=== PATIENT | female | born 1945 | race Caucasian/White ===

== ENCOUNTER 2017-11-09 14:46 | Outpatient (CLI) | payer MEDICARE ==
--- NOTE | 2017-11-09 15:19 | RAD ---
CHEST 2 VIEWS: Date: 11/09/17 HISTORY: Asthma, acute bronchitis. COMPARISON: None. FINDINGS: Heart size upper limits of normal. No focal air space consolidation, pneumothorax, or effusion. No ac melvin osseous abnormality. Mild spondylosis mid thoracic spine. IMPRESSION: No acute intrathoracic abnormality. POS: [facility]
== END 2017-11-09 14:47 | disposition home or self-care (01) ==
LOC: BURRAD 14:46
PROVIDERS: ATTEND Internal Medicine
DX: J45.909 Unspecified asthma, uncomplicated (principal); J20.9 Acute bronchitis, unspecified
CPT/HCPCS: 71020

== ENCOUNTER 2018-03-06 14:37 | Outpatient (CLI) | payer MEDICARE ==
--- NOTE | 2018-03-07 07:28 | ULT ---
BILATERAL RENAL ULTRASOUND: Date: 03-06-18 Ultrasonography of the urinary tract was performed. FINDINGS: The right kidney measures 9.2 x 4.0 x 3.8 cm and the left measures 10.2 x 5.7 x 4.9 cm. No mass or hy dronephrosis was seen in either. Cortex was normal in thickness and echogenicity bilaterally. No defects of concern were seen within the urinary bladder. Bilateral ureteral jets were noted. IMPRESSION: No significant finding. POS: HOME
== END 2018-03-06 14:38 | disposition home or self-care (01) ==
LOC: BURULT 14:37
PROVIDERS: ATTEND Internal Medicine Nephrology
DX: I12.9 Hypertensive chronic kidney disease with stage 1 through stage 4 chronic kidney disease, or unspecified chronic kidney disease (principal); N18.9 Chronic kidney disease, unspecified
CPT/HCPCS: 76770

== ENCOUNTER 2018-06-08 16:54 | Inpatient (IN) | payer MEDICARE ==
[2018-06-08] MEDS ORDERED: VANCOMYCIN IVPB PRN (18:33)
[2018-06-08] MEDS ORDERED: Dextrose 5% in Water 1,000 ML IV PRN (18:47)
[2018-06-08] MEDS ORDERED: Dextrose 50% Abboject 50 ML SYRINGE SLOW IVP PRN (18:47)
[2018-06-08] MEDS ORDERED: Milk Of Magnesia 30 ML UDCUP PO PRN (18:48)
[2018-06-08] MEDS ORDERED: Loperamide HCl 2 MG CAP PO PRN (18:48)
[2018-06-08] MEDS ORDERED: cloNIDine 0.1 MG TAB PO PRN (18:48)
[2018-06-08] MEDS ORDERED: Bisacodyl 10 MG SUPP PR PRN (18:48)
[2018-06-08] MEDS ORDERED: Ondansetron ODT 4 MG TAB PO PRN (18:48)
[2018-06-08] MEDS: hydrALAZINE 25 MG TAB PO SCH (21:35)
[2018-06-08] MEDS: Venlafaxine XR 37.5 MG CAP PO SCH (21:35)
[2018-06-08] MEDS: Atorvastatin Calcium 40 MG TAB PO SCH (21:38)
[2018-06-08] MEDS: ALPRAZolam 0.5 MG TAB PO PRN (21:38)
[2018-06-08] MEDS: Levemir Flexpen 100 UNITS/ML PEN SC SCH (21:39)
[2018-06-08] MEDS: HumaLOG 300 UNITS/3 ML VIAL SC PRN (21:40)
[2018-06-08 23:29] LABS: Vancomycin, Trough 20.3 ug/mL
[2018-06-08] MEDS: Vancomycin HCl 750 MG in Sodium Chloride 0.9% 250 ML 250 ML IVPB SCH (23:54)
[2018-06-09] MEDS: Vancomycin HCl 500 MG in Sodium Chloride 0.9% 100 ML IVPB SCH (01:43)
[2018-06-09] MEDS: Acetaminophen 325 MG TAB PO PRN ×2 (02:50→08:14)
[2018-06-09] MEDS: Carvedilol 25 MG TAB PO SCH ×2 (07:46→17:25)
[2018-06-09] MEDS: predniSONE 10 MG TAB PO SCH (07:46)
[2018-06-09] MEDS: Furosemide 40 MG TAB PO SCH (07:46)
[2018-06-09] MEDS: HumaLOG 300 UNITS/3 ML VIAL SC PRN ×4 (07:48→20:11)
[2018-06-09] MEDS: Aspirin 325 MG TAB PO SCH (08:15)
[2018-06-09] MEDS: hydrALAZINE 25 MG TAB PO SCH ×2 (08:16→20:14)
[2018-06-09] MEDS: Venlafaxine XR 37.5 MG CAP PO SCH ×2 (08:17→20:13)
[2018-06-09] MEDS: Saccharomyces boulardii 250 MG CAP PO SCH (08:19)
[2018-06-09] MEDS: Levemir Flexpen 100 UNITS/ML PEN SC SCH ×2 (08:23→20:28)
[2018-06-09] MEDS: cefTRIAXone\\ROCEPHIN 2 GM in Sodium Chloride 0.9% 100 ML IVPB SCH (08:28)
[2018-06-09] MEDS ORDERED: CEFTRIAXONE SODIUM 2 GM IV SCH (09:00)
[2018-06-09] MEDS ORDERED: Prevnar 13-Val Conj/PF 0.5 ML SYRINGE IM ONE (09:00)
[2018-06-09] MEDS: ALPRAZolam 0.5 MG TAB PO PRN (12:21)
[2018-06-09] MEDS: NIFEdipine XL 30 MG TAB PO SCH (13:43)
[2018-06-09] MEDS: Loratadine 10 MG TAB PO PRN (13:43)
[2018-06-09] MEDS: Atorvastatin Calcium 40 MG TAB PO SCH (20:15)
[2018-06-09] MEDS: Vancomycin HCl 750 MG in Sodium Chloride 0.9% 250 ML 250 ML IVPB SCH (23:12)
[2018-06-10] MEDS: Vancomycin HCl 500 MG in Sodium Chloride 0.9% 100 ML IVPB SCH (00:53)
[2018-06-10] MEDS: Loratadine 10 MG TAB PO PRN (01:34)
[2018-06-10] MEDS: ALPRAZolam 0.5 MG TAB PO PRN ×3 (01:34→22:20)
[2018-06-10 06:20] LABS: ALT (SGPT) 25 U/L (8-55); AST (SGOT) 16 U/L (5-34); Albumin 2.5 g/dL (3.4-4.8); Alkaline Phosphatase 146 U/L (40-150); Anion Gap 14 mmol/L (10-20); BUN (Urea Nitrogen) 28 mg/dL (9.8-20.1); Bilirubin, Total 0.5 mg/dL (0.2-1.2); Calc. Creatinine Clearance 82 mL/min (70-130); Carbon Dioxide 23 mmol/L (23-31); Chloride 107 mmol/L (98-107); Estimated GFR-MDRD 63; Globulin 2.7 g/dL (2.4-3.5); Glucose 105 mg/dL (83-110); Potassium 3.6 mmol/L (3.5-5.1); Protein, Total 5.2 g/dL (6.0-8.3); Sodium 140 mmol/L (136-145)
[2018-06-10 06:37] LABS: Hemoglobin 7.7 g/dL (12.0-16.0); Mean Corpuscular HGB CONC 35.3 g/dL (32.0-36.0); Mean Corpuscular Volume 73.9 fL (78.0-98.0); Mean Platelet Volume 5.8 fL (7.4-10.4); Platelet Count 120 thou/uL (130-400); RBC Distribution Width 13.4 % (11.5-14.5); Red Blood Cell (RBC) Count 2.96 mill/uL (4.20-5.40); White Blood Cell (WBC) Count 1.2 thou/uL (4.8-10.8)
[2018-06-10 09:00] LABS: Lymphocytes 28 % (21-51); MDiff Complete? YES; Monocytes 22 % (0-10); Neutrophil 23 % (42-75); Reactive Lymphocytes 23 % (0-10)
[2018-06-10 09:01] LABS: Eosinophils 2 % (0-10)
[2018-06-10] MEDS: Venlafaxine XR 37.5 MG CAP PO SCH ×2 (09:11→21:12)
[2018-06-10] MEDS: Carvedilol 25 MG TAB PO SCH ×2 (09:11→17:41)
[2018-06-10] MEDS: Saccharomyces boulardii 250 MG CAP PO SCH (09:11)
[2018-06-10] MEDS: hydrALAZINE 25 MG TAB PO SCH ×2 (09:12→21:12)
[2018-06-10] MEDS: predniSONE 10 MG TAB PO SCH (09:15)
[2018-06-10] MEDS: Furosemide 40 MG TAB PO SCH (09:15)
[2018-06-10] MEDS: cefTRIAXone\\ROCEPHIN 2 GM in Sodium Chloride 0.9% 100 ML IVPB SCH (09:16)
[2018-06-10 09:45] LABS: Anisocytosis SLIGHT = 6-15 cells (100X) (0-5/hpf); Microcytosis SLIGHT = 6-15 cells (100X) (0-5/hpf); PLT Morphology Comment Appears Increased
[2018-06-10] MEDS: Levemir Flexpen 100 UNITS/ML PEN SC SCH ×2 (10:02→21:12)
[2018-06-10] MEDS: Aspirin 325 MG TAB PO SCH (10:03)
[2018-06-10] MEDS ORDERED: Furosemide 20 MG/2 ML VIAL SLOW IVP SCH ×2 (10:30→14:00)
[2018-06-10] MEDS: HumaLOG 300 UNITS/3 ML VIAL SC PRN ×3 (13:02→21:11)
[2018-06-10] MEDS: NIFEdipine XL 30 MG TAB PO SCH (14:14)
--- NOTE | 2018-06-10 18:23 | RAD ---
PORTABLE CHEST: Date: 06/10/18 An AP portable film at 1305 hours is compared with a 06/05/18 study done at [facility] [place]. FINDINGS: There is still a small amount of vascular congestion, but this has improved over the interval. A smal l amount of pleural fluid is probably present on the left. A tiny amount is seen in the minor fissure on the right. No lobar consolidations seen, but it is difficult to see well behind the heart on the left. A left subclavian line remains in place and unchanged in position. IMPRESSION: Some improvement in congestion since 06/05/18. POS: HOME
[2018-06-10] MEDS: Atorvastatin Calcium 40 MG TAB PO SCH (21:13)
[2018-06-11] MEDS: Vancomycin HCl 750 MG in Sodium Chloride 0.9% 250 ML 250 ML IVPB SCH (00:02)
[2018-06-11] MEDS: Vancomycin HCl 500 MG in Sodium Chloride 0.9% 100 ML IVPB SCH (00:54)
[2018-06-11] MEDS: Acetaminophen 325 MG TAB PO PRN (05:22)
[2018-06-11 05:31] LABS: Hemoglobin 7.7 g/dL (12.0-16.0); Mean Corpuscular HGB CONC 35.1 g/dL (32.0-36.0); Mean Corpuscular Hemoglobin 25.8 pg (27.0-31.0); Mean Corpuscular Volume 73.5 fL (78.0-98.0); Mean Platelet Volume 6.2 fL (7.4-10.4); Platelet Count 164 thou/uL (130-400); RBC Distribution Width 14.2 % (11.5-14.5); Red Blood Cell (RBC) Count 2.98 mill/uL (4.20-5.40); White Blood Cell (WBC) Count 1.1 thou/uL (4.8-10.8)
[2018-06-11 05:38] LABS: ALT (SGPT) 27 U/L (8-55); AST (SGOT) 17 U/L (5-34); Albumin 2.6 g/dL (3.4-4.8); Alkaline Phosphatase 170 U/L (40-150); Anion Gap 14 mmol/L (10-20); BUN (Urea Nitrogen) 24 mg/dL (9.8-20.1); Bilirubin, Total 0.5 mg/dL (0.2-1.2); Calc. Creatinine Clearance 75 mL/min (70-130); Calcium 8.2 mg/dL (7.8-10.44); Carbon Dioxide 25 mmol/L (23-31); Chloride 108 mmol/L (98-107); Estimated GFR-MDRD 58; Globulin 2.8 g/dL (2.4-3.5); Glucose 112 mg/dL (83-110); Potassium 3.6 mmol/L (3.5-5.1); Protein, Total 5.4 g/dL (6.0-8.3); Sodium 143 mmol/L (136-145)
[2018-06-11 05:51] LABS: Eosinophils 2 % (0-10); Lymphocytes 71 % (21-51); MDiff Complete? YES; Microcytosis SLIGHT = 6-15 cells (100X) (0-5/hpf); Monocytes 22 % (0-10); Neutrophil 2 % (42-75); Nucleated RBC 1 % (0); PLT Morphology Comment Appears Adequate; Reactive Lymphocytes 3 % (0-10)
[2018-06-11] MEDS: Saccharomyces boulardii 250 MG CAP PO SCH (08:06)
[2018-06-11] MEDS: hydrALAZINE 25 MG TAB PO SCH (08:06)
[2018-06-11] MEDS: predniSONE 10 MG TAB PO SCH (08:06)
[2018-06-11] MEDS: Venlafaxine XR 37.5 MG CAP PO SCH ×2 (08:06→20:37)
[2018-06-11] MEDS: Aspirin 325 MG TAB PO SCH (08:06)
[2018-06-11] MEDS: Carvedilol 25 MG TAB PO SCH ×2 (08:06→17:30)
[2018-06-11] MEDS: Furosemide 40 MG TAB PO SCH (08:06)
[2018-06-11] MEDS: cefTRIAXone\\ROCEPHIN 2 GM in Sodium Chloride 0.9% 100 ML IVPB SCH (08:07)
[2018-06-11] MEDS: Levemir Flexpen 100 UNITS/ML PEN SC SCH ×2 (08:37→20:36)
[2018-06-11] MEDS ORDERED: Lisinopril 20 MG TAB PO SCH (09:00)
[2018-06-11 12:14] LABS: Iron 32 ug/dL (50-170); Iron Binding Capacity, Total 198 mcg/dL (265-497)
[2018-06-11] MEDS: HumaLOG 300 UNITS/3 ML VIAL SC PRN ×3 (12:48→20:36)
[2018-06-11] MEDS: NIFEdipine XL 30 MG TAB PO SCH (15:19)
[2018-06-11] MEDS: Lisinopril 20 MG TAB PO SCH (20:37)
[2018-06-11] MEDS: Atorvastatin Calcium 40 MG TAB PO SCH (20:37)
[2018-06-11 23:32] LABS: Vancomycin, Trough 15.1 ug/mL
[2018-06-12] MEDS: Vancomycin HCl 750 MG in Sodium Chloride 0.9% 250 ML 250 ML IVPB SCH (00:01)
[2018-06-12] MEDS: Vancomycin HCl 500 MG in Sodium Chloride 0.9% 100 ML IVPB SCH (01:28)
[2018-06-12] MEDS: Acetaminophen 325 MG TAB PO PRN (02:26)
[2018-06-12] MEDS: ALPRAZolam 0.5 MG TAB PO PRN (02:26)
[2018-06-12] MEDS ORDERED: Furosemide 20 MG/2 ML VIAL SLOW IVP SCH ×3 (03:30→18:45)
[2018-06-12 05:28] LABS: Hemoglobin 7.1 g/dL (12.0-16.0); Mean Corpuscular HGB CONC 35.1 g/dL (32.0-36.0); Mean Corpuscular Hemoglobin 25.8 pg (27.0-31.0); Mean Corpuscular Volume 73.6 fL (78.0-98.0); Platelet Count 159 thou/uL (130-400); RBC Distribution Width 13.7 % (11.5-14.5); Red Blood Cell (RBC) Count 2.75 mill/uL (4.20-5.40); White Blood Cell (WBC) Count 1.2 thou/uL (4.8-10.8)
[2018-06-12 05:37] LABS: ALT (SGPT) 26 U/L (8-55); AST (SGOT) 13 U/L (5-34); Albumin 2.5 g/dL (3.4-4.8); Alkaline Phosphatase 164 U/L (40-150); Anion Gap 13 mmol/L (10-20); BUN (Urea Nitrogen) 27 mg/dL (9.8-20.1); Bilirubin, Total 0.4 mg/dL (0.2-1.2); Calc. Creatinine Clearance 72 mL/min (70-130); Calcium 8.2 mg/dL (7.8-10.44); Carbon Dioxide 25 mmol/L (23-31); Chloride 108 mmol/L (98-107); Estimated GFR-MDRD 55; Globulin 2.5 g/dL (2.4-3.5); Glucose 210 mg/dL (83-110); Potassium 3.7 mmol/L (3.5-5.1); Sodium 142 mmol/L (136-145)
[2018-06-12 05:53] LABS: Lymphocytes 71 % (21-51); MDiff Complete? YES; Microcytosis SLIGHT = 6-15 cells (100X) (0-5/hpf); Monocytes 20 % (0-10); Neutrophil 4 % (42-75); PLT Morphology Comment Appears Adequate; Reactive Lymphocytes 3 % (0-10)
[2018-06-12] MEDS ORDERED: Furosemide 40 MG/4 ML VIAL ONE (08:08)
[2018-06-12] MEDS: Aspirin 325 MG TAB PO SCH (08:22)
[2018-06-12] MEDS: Venlafaxine XR 37.5 MG CAP PO SCH ×2 (08:22→21:09)
[2018-06-12] MEDS: Carvedilol 25 MG TAB PO SCH ×2 (08:23→16:29)
[2018-06-12] MEDS: Saccharomyces boulardii 250 MG CAP PO SCH (08:23)
[2018-06-12] MEDS: predniSONE 10 MG TAB PO SCH (08:24)
[2018-06-12] MEDS: HumaLOG 300 UNITS/3 ML VIAL SC PRN ×5 (08:26→21:08)
[2018-06-12] MEDS ORDERED: Furosemide 40 MG/4 ML VIAL SLOW IVP SCH ×2 (08:30→12:15)
[2018-06-12] MEDS: Levemir Flexpen 100 UNITS/ML PEN SC SCH ×2 (08:30→21:08)
[2018-06-12] MEDS: Lisinopril 20 MG TAB PO SCH ×2 (08:40→21:09)
[2018-06-12] MEDS: Furosemide 40 MG TAB PO SCH (09:06)
[2018-06-12] MEDS: cefTRIAXone\\ROCEPHIN 2 GM in Sodium Chloride 0.9% 100 ML IVPB SCH (09:33)
[2018-06-12 09:54] LABS: Bilirubin Negative (Negative); Clarity Cloudy (Clear); Glucose, Urine (Dipstick) 100 mg/dL (Negative); Leukocyte Negative (Negative); Nitrite Negative (Negative); Protein, Urine (Dipstick) 100 mg/dL (Neg-Trace); Specific Gravity, Urine 1.015 (1.005-1.030); Urobilinogen 0.2 mg/dL (0.2-1.0); pH, Urine 5.5 (5.0-9.0)
[2018-06-12 09:55] LABS: Bacteria/HPF 1+ HPF (None Seen); Blood, Urine Trace (Negative); Crystals/HPF 3+ AMORPH URATES HPF (Negative); Squamous Epithelial 0-3 HPF (0-3); WBC/HPF 0-3 HPF (0-3)
[2018-06-12 09:56] LABS: RBC/HPF None Seen HPF (0-3); Yeast-All Forms Rare HPF (None Seen)
[2018-06-12 10:54] LABS: MONO NEGATIVE CONTROL ZONE White (Negative) (White); MONO POSITIVE CONTROL Pink Line (Positive) (PINK/RED); Mononucleosis NEGATIVE (NEGATIVE)
[2018-06-12] MEDS: NIFEdipine XL 30 MG TAB PO SCH (13:08)
[2018-06-12] MEDS ORDERED: Acetaminophen 325 MG TAB ONE (16:19)
[2018-06-12] MEDS ORDERED: diphenhydrAMINE 25 MG CAP ONE (16:24)
[2018-06-12] MEDS ORDERED: Acetaminophen 325 MG TAB PO PRN (16:43)
[2018-06-12] MEDS ORDERED: diphenhydrAMINE 25 MG CAP PO SCH (16:45)
[2018-06-12 18:18] LABS: HIV (1/2) Antibody/Antigen Non-Reactive (NonReactive); HIV 1/2 INDEX 0.12 S/CO (<1.00)
[2018-06-12] MEDS: Ciprofloxacin 500 MG TAB PO SCH (21:09)
[2018-06-12] MEDS: Furosemide 20 MG/2 ML VIAL SLOW IVP SCH (21:09)
[2018-06-12] MEDS: Atorvastatin Calcium 40 MG TAB PO SCH (21:09)
[2018-06-13] MEDS: Vancomycin HCl 750 MG in Sodium Chloride 0.9% 250 ML 250 ML IVPB SCH ×2 (01:07→23:59)
[2018-06-13] MEDS: Furosemide 20 MG/2 ML VIAL SLOW IVP SCH (01:07)
[2018-06-13] MEDS: Vancomycin HCl 500 MG in Sodium Chloride 0.9% 100 ML IVPB SCH (01:08)
[2018-06-13] MEDS: ALPRAZolam 0.5 MG TAB PO PRN (02:02)
[2018-06-13] MEDS ORDERED: Sodium Chloride 0.9% 10 ML ONE (04:09)
[2018-06-13] MEDS ORDERED: Nitroglycerin 2% Ointment 1 INCH/1 GM Packet ONE ×2 (04:18→04:42)
[2018-06-13] MEDS ORDERED: Furosemide 40 MG/4 ML VIAL ONE (04:20)
[2018-06-13 05:26] LABS: Anion Gap 15 mmol/L (10-20); BUN (Urea Nitrogen) 24 mg/dL (9.8-20.1); Calc. Creatinine Clearance 69 mL/min (70-130); Calcium 8.6 mg/dL (7.8-10.44); Carbon Dioxide 25 mmol/L (23-31); Chloride 104 mmol/L (98-107); Estimated GFR-MDRD 51; Glucose 214 mg/dL (83-110); Potassium 3.8 mmol/L (3.5-5.1); Sodium 140 mmol/L (136-145)
[2018-06-13 06:08] LABS: Anisocytosis SLIGHT = 6-15 cells (100X) (0-5/hpf); Eosinophils 2 % (0-10); Hemoglobin 11.2 g/dL (12.0-16.0); Lymphocytes 56 % (21-51); MDiff Complete? YES; Mean Corpuscular HGB CONC 36.7 g/dL (32.0-36.0); Mean Corpuscular Hemoglobin 27.6 pg (27.0-31.0); Mean Corpuscular Volume 75.2 fL (78.0-98.0); Mean Platelet Volume 6.1 fL (7.4-10.4); Microcytosis SLIGHT = 6-15 cells (100X) (0-5/hpf); Monocytes 38 % (0-10); Neutrophil 2 % (42-75); Ovalocytes SLIGHT = 2-5 cells (100X) (0-1/hpf); PLT Morphology Comment Appears Adequate; Platelet Count 190 thou/uL (130-400); RBC Distribution Width 14.7 % (11.5-14.5); Reactive Lymphocytes 2 % (0-10); Red Blood Cell (RBC) Count 4.06 mill/uL (4.20-5.40); White Blood Cell (WBC) Count 1.5 thou/uL (4.8-10.8)
[2018-06-13] MEDS: Ciprofloxacin 500 MG TAB PO SCH ×2 (06:10→20:58)
--- NOTE | 2018-06-13 07:13 | RAD ---
PORTABLE CHEST: Date 06/13/18 An AP portable film at 0412 hours is compared to the 06/10/18 study. FINDINGS: The heart remains enlarged. There is still congestion of vessels bilaterally, which is not really imp roved by much. There probably are some small effusions. There is increased haziness over the lung bas es, mostly due to overlying soft tissues. It would be difficult to exclude pneumonias in the lung bas es, however. Overall, the appearance of the chest is fairly similar to the 06/10/18 study. Left centr al line remains in place. IMPRESSION: Congestive changes as noted, somewhat similar to 06/10/18. See discussion above. CODE T. POS: HOME
[2018-06-13] MEDS ORDERED: Metolazone 5 MG TAB PO SCH (07:45)
[2018-06-13] MEDS ORDERED: cloNIDine 0.1 MG TAB PO PRN (07:48)
[2018-06-13] MEDS: Levemir Flexpen 100 UNITS/ML PEN SC SCH ×2 (08:25→20:54)
[2018-06-13] MEDS: predniSONE 10 MG TAB PO SCH (08:26)
[2018-06-13] MEDS: Venlafaxine XR 37.5 MG CAP PO SCH ×2 (08:27→20:57)
[2018-06-13] MEDS: Carvedilol 25 MG TAB PO SCH ×2 (08:27→16:58)
[2018-06-13] MEDS: Lisinopril 20 MG TAB PO SCH ×2 (08:28→20:58)
[2018-06-13] MEDS: Aspirin 325 MG TAB PO SCH (08:28)
[2018-06-13] MEDS: Saccharomyces boulardii 250 MG CAP PO SCH (08:28)
[2018-06-13] MEDS: Furosemide 40 MG TAB PO SCH (08:29)
[2018-06-13] MEDS: HumaLOG 300 UNITS/3 ML VIAL SC PRN ×4 (08:32→20:54)
[2018-06-13] MEDS: NIFEdipine XL 30 MG TAB PO SCH (14:15)
[2018-06-13] MEDS: Atorvastatin Calcium 40 MG TAB PO SCH (20:57)
[2018-06-14] MEDS: Vancomycin HCl 500 MG in Sodium Chloride 0.9% 100 ML IVPB SCH (02:07)
[2018-06-14] MEDS: Ciprofloxacin 500 MG TAB PO SCH ×2 (05:02→20:31)
[2018-06-14 05:30] LABS: ALT (SGPT) 29 U/L (8-55); AST (SGOT) 18 U/L (5-34); Albumin 2.7 g/dL (3.4-4.8); Alkaline Phosphatase 166 U/L (40-150); Anion Gap 15 mmol/L (10-20); BUN (Urea Nitrogen) 28 mg/dL (9.8-20.1); Bilirubin, Total 0.5 mg/dL (0.2-1.2); Calc. Creatinine Clearance 69 mL/min (70-130); Calcium 8.2 mg/dL (7.8-10.44); Carbon Dioxide 22 mmol/L (23-31); Chloride 107 mmol/L (98-107); Estimated GFR-MDRD 51; Globulin 2.9 g/dL (2.4-3.5); Glucose 133 mg/dL (83-110); Potassium 4.2 mmol/L (3.5-5.1); Protein, Total 5.6 g/dL (6.0-8.3); Sodium 140 mmol/L (136-145)
[2018-06-14] MEDS: Venlafaxine XR 37.5 MG CAP PO SCH ×2 (08:51→20:32)
[2018-06-14] MEDS: Aspirin 325 MG TAB PO SCH (08:51)
[2018-06-14] MEDS: Furosemide 40 MG TAB PO SCH ×3 (08:51→14:28)
[2018-06-14] MEDS: Saccharomyces boulardii 250 MG CAP PO SCH (08:52)
[2018-06-14] MEDS: Lisinopril 20 MG TAB PO SCH ×2 (08:52→20:32)
[2018-06-14] MEDS: Carvedilol 25 MG TAB PO SCH ×2 (08:52→17:03)
[2018-06-14] MEDS: Levemir Flexpen 100 UNITS/ML PEN SC SCH ×2 (08:53→20:39)
[2018-06-14] MEDS: predniSONE 10 MG TAB PO SCH (08:53)
[2018-06-14 10:01] LABS: Hemoglobin 9.8 g/dL (12.0-16.0); Mean Corpuscular HGB CONC 35.7 g/dL (32.0-36.0); Mean Corpuscular Hemoglobin 27.2 pg (27.0-31.0); Mean Corpuscular Volume 76.2 fL (78.0-98.0); Mean Platelet Volume 5.7 fL (7.4-10.4); Platelet Count 189 thou/uL (130-400); White Blood Cell (WBC) Count 1.9 thou/uL (4.8-10.8)
[2018-06-14 10:19] LABS: Band 3 % (5-11); Eosinophils 1 % (0-10); Giant Platelets SLIGHT; Large Platelets SLIGHT; Lymphocytes 8 % (21-51); MDiff Complete? YES; Monocytes 16 % (0-10); Neutrophil 69 % (42-75); PLT Morphology Comment Appears Adequate; RBC Morphology Normal; Reactive Lymphocytes 3 % (0-10)
[2018-06-14] MEDS: HumaLOG 300 UNITS/3 ML VIAL SC PRN (12:21)
[2018-06-14] MEDS: NIFEdipine XL 30 MG TAB PO SCH (14:26)
[2018-06-14] MEDS: Atorvastatin Calcium 40 MG TAB PO SCH (20:31)
[2018-06-14] MEDS ORDERED: Spironolactone 25 MG TAB PO SCH (21:00)
[2018-06-14 23:28] LABS: Vancomycin, Trough 17.6 ug/mL
[2018-06-14] MEDS: Vancomycin HCl 750 MG in Sodium Chloride 0.9% 250 ML 250 ML IVPB SCH (23:41)
[2018-06-15] MEDS: Vancomycin HCl 500 MG in Sodium Chloride 0.9% 100 ML IVPB SCH (01:01)
[2018-06-15] MEDS: ALPRAZolam 0.5 MG TAB PO PRN (04:25)
[2018-06-15 05:05] LABS: INR-International Normal Ratio 1.1; PTT 33.7 SEC (22.9-36.1); Prothrombin Time 13.9 SEC (12.0-14.7)
[2018-06-15] MEDS: Ciprofloxacin 500 MG TAB PO SCH ×2 (05:05→20:44)
[2018-06-15 05:09] LABS: Anion Gap 16 mmol/L (10-20); BUN (Urea Nitrogen) 35 mg/dL (9.8-20.1); Calc. Creatinine Clearance 55 mL/min (70-130); Calcium 8.1 mg/dL (7.8-10.44); Carbon Dioxide 22 mmol/L (23-31); Chloride 103 mmol/L (98-107); Estimated GFR-MDRD 41; Glucose 206 mg/dL (83-110); Potassium 3.7 mmol/L (3.5-5.1); Sodium 137 mmol/L (136-145)
[2018-06-15] MEDS ORDERED: Furosemide 40 MG/4 ML VIAL ONE (05:24)
[2018-06-15 05:28] LABS: Hemoglobin 9.2 g/dL (12.0-16.0); Mean Corpuscular HGB CONC 37.4 g/dL (32.0-36.0); Mean Corpuscular Hemoglobin 28.1 pg (27.0-31.0); Mean Corpuscular Volume 75.2 fL (78.0-98.0); Mean Platelet Volume 5.6 fL (7.4-10.4); Platelet Count 177 thou/uL (130-400); RBC Distribution Width 15.1 % (11.5-14.5); Red Blood Cell (RBC) Count 3.26 mill/uL (4.20-5.40); White Blood Cell (WBC) Count 2.4 thou/uL (4.8-10.8)
[2018-06-15 05:33] LABS: Band 1 % (5-11); Lymphocytes 54 % (21-51); Manual Diff?? YES; Monocytes 42 % (0-10); Neutrophil 2 % (42-75); Reactive Lymphocytes 1 % (0-10)
[2018-06-15 05:34] LABS: Anisocytosis SLIGHT = 6-15 cells (100X) (0-5/hpf); Microcytosis SLIGHT = 6-15 cells (100X) (0-5/hpf); Vacuoles SLIGHT
[2018-06-15 05:35] LABS: MDiff Complete? YES; PLT Morphology Comment Appears Adequate; Small Platelets SLIGHT
[2018-06-15] MEDS ORDERED: Furosemide 40 MG/4 ML VIAL SLOW IVP SCH (06:00)
[2018-06-15] MEDS: Aspirin 325 MG TAB PO SCH (09:22)
[2018-06-15] MEDS: Carvedilol 25 MG TAB PO SCH ×2 (09:23→17:57)
[2018-06-15] MEDS: Venlafaxine XR 37.5 MG CAP PO SCH ×2 (09:23→20:43)
[2018-06-15] MEDS: predniSONE 10 MG TAB PO SCH (09:23)
[2018-06-15] MEDS: Furosemide 40 MG TAB PO SCH ×2 (09:24→14:00)
[2018-06-15] MEDS: Lisinopril 20 MG TAB PO SCH ×2 (09:24→20:45)
[2018-06-15] MEDS: Saccharomyces boulardii 250 MG CAP PO SCH (09:29)
[2018-06-15] MEDS: Levemir Flexpen 100 UNITS/ML PEN SC SCH ×2 (09:29→20:51)
[2018-06-15] MEDS: HumaLOG 300 UNITS/3 ML VIAL SC PRN ×3 (12:51→20:52)
[2018-06-15] MEDS: NIFEdipine XL 30 MG TAB PO SCH (14:00)
[2018-06-15] MEDS: Loratadine 10 MG TAB PO PRN (17:57)
[2018-06-15] MEDS: Atorvastatin Calcium 40 MG TAB PO SCH (20:43)
[2018-06-15] MEDS: Spironolactone 25 MG TAB PO SCH (20:44)
[2018-06-15] MEDS: Vancomycin HCl 1.25 GM in Sodium Chloride 0.9% 250 ML 250 ML IVPB SCH (23:49)
[2018-06-16] MEDS: diphenhydrAMINE 25 MG CAP PO PRN (00:37)
[2018-06-16] MEDS: ALPRAZolam 0.5 MG TAB PO PRN ×2 (03:27→21:24)
[2018-06-16] MEDS: Ciprofloxacin 500 MG TAB PO SCH ×2 (05:36→21:31)
[2018-06-16 05:50] LABS: ALT (SGPT) 28 U/L (8-55); AST (SGOT) 15 U/L (5-34); Albumin 3.1 g/dL (3.4-4.8); Alkaline Phosphatase 182 U/L (40-150); Anion Gap 16 mmol/L (10-20); BUN (Urea Nitrogen) 34 mg/dL (9.8-20.1); Bilirubin, Total 0.6 mg/dL (0.2-1.2); Calc. Creatinine Clearance 45 mL/min (70-130); Calcium 8.7 mg/dL (7.8-10.44); Carbon Dioxide 25 mmol/L (23-31); Chloride 103 mmol/L (98-107); Estimated GFR-MDRD 32; Glucose 113 mg/dL (83-110); Potassium 3.7 mmol/L (3.5-5.1); Protein, Total 6.1 g/dL (6.0-8.3); Sodium 140 mmol/L (136-145)
[2018-06-16 06:05] LABS: Anisocytosis SLIGHT = 6-15 cells (100X) (0-5/hpf); Band 14 % (5-11); Hemoglobin 10.4 g/dL (12.0-16.0); Lymphocytes 35 % (21-51); MDiff Complete? YES; Mean Corpuscular HGB CONC 36.5 g/dL (32.0-36.0); Mean Corpuscular Hemoglobin 27.8 pg (27.0-31.0); Mean Corpuscular Volume 75.9 fL (78.0-98.0); Mean Platelet Volume 5.8 fL (7.4-10.4); Microcytosis SLIGHT = 6-15 cells (100X) (0-5/hpf); Monocytes 23 % (0-10); Neutrophil 27 % (42-75); PLT Morphology Comment Appears Adequate; Platelet Count 200 thou/uL (130-400); RBC Distribution Width 15.1 % (11.5-14.5); Reactive Lymphocytes 1 % (0-10); Red Blood Cell (RBC) Count 3.76 mill/uL (4.20-5.40); Toxic Granulation SLIGHT; White Blood Cell (WBC) Count 3.2 thou/uL (4.8-10.8)
[2018-06-16] MEDS: Carvedilol 25 MG TAB PO SCH ×2 (09:33→18:03)
[2018-06-16] MEDS: Lisinopril 20 MG TAB PO SCH ×2 (09:33→21:31)
[2018-06-16] MEDS: Saccharomyces boulardii 250 MG CAP PO SCH (09:33)
[2018-06-16] MEDS: Loratadine 10 MG TAB PO PRN (09:33)
[2018-06-16] MEDS: Aspirin 325 MG TAB PO SCH (09:33)
[2018-06-16] MEDS: Venlafaxine XR 37.5 MG CAP PO SCH ×2 (09:33→21:24)
[2018-06-16] MEDS: predniSONE 10 MG TAB PO SCH (09:34)
[2018-06-16] MEDS: Furosemide 40 MG TAB PO SCH ×2 (09:34→14:21)
[2018-06-16] MEDS: Levemir Flexpen 100 UNITS/ML PEN SC SCH ×2 (09:37→21:27)
[2018-06-16] MEDS: NIFEdipine XL 30 MG TAB PO SCH (14:14)
[2018-06-16] MEDS: HumaLOG 300 UNITS/3 ML VIAL SC PRN ×3 (14:21→21:27)
--- NOTE | 2018-06-16 20:53 | CT ---
CT ABDOMEN AND PELVIS WITHOUT CONTRAST: Date: 06-16-18 Comparison: 04-21-08 Technique: A noncontrast study was done. IV contrast was deferred due to poor renal function. Axial s lices were acquired and then coronal and sagittal reconstructions were done. FINDINGS: The lung bases show moderate pleural effusions bilaterally with compressive atelectasis of the lower lobes. This is presumably due to congestive change. There is asymmetry in the breast tissue in the le ft breast versus right, this is probably due to uneven scanning. Nevertheless, if there has not been a recent physical exam it would be prudent. The liver is mildly enlarged but comparable to the 2008 study. It is somewhat dense suggesting diffus e fatty infiltration. There were no dilated ducts of signs of hepatic mass. The spleen is normal in s ize. The pancreas, gallbladder, adrenal glands, kidneys, and abdominal aorta showed no acute findings within the limitations of a noncontrast study. The aorta is partially calcified, particularly distal ly. There are some small amounts of fluid in the pericolic gutters and a small to medium amount in the cu l-de-sac. Given some general reticulation of the patient's soft tissues, I presume that this is all d ue to congestive change and her fluid status. No free air was seen. The bowel is nondistended. There are no sign of bowel obstruction. No gross thickening of bowel wall was appreciated. CT of the pelvis shows a Beltran catheter in the bladder which partially decompresses it. Aside from th e fluid in the cul-de-sac, a few areas of generalized streaking in the pelvic fat were seen throughou t, a nonspecific finding, and possibly due to her fluid status. There is a prominent disc osteophyte complex at L5-S1. It was present before but seems a little more prominent now. Additionally at L2-3 t here seems to be some posterior bulging of the disc. IMPRESSION: 1. Moderate bilateral pleural effusions causing some compressive lower lobe atelectasis. This taken i n concert with some pockets of fluid in the abdomen and reticulation of the soft tissues suggests dinesh t this is all connected to the patient's fluid status. 2. Mild hepatomegaly but not substantially worse than 2008. Probable diffuse fatty infiltration. 3. Other findings as above. POS: HOME
[2018-06-16] MEDS: Spironolactone 25 MG TAB PO SCH (21:24)
[2018-06-16] MEDS: Atorvastatin Calcium 40 MG TAB PO SCH (21:24)
[2018-06-16 23:57] LABS: Vancomycin, Trough 22.8 ug/mL
[2018-06-17] MEDS: Vancomycin HCl 1.25 GM in Sodium Chloride 0.9% 250 ML 250 ML IVPB SCH (01:52)
[2018-06-17] MEDS: diphenhydrAMINE 25 MG CAP PO PRN ×3 (03:34→20:54)
[2018-06-17 05:06] LABS: ALT (SGPT) 24 U/L (8-55); AST (SGOT) 15 U/L (5-34); Albumin 2.5 g/dL (3.4-4.8); Alkaline Phosphatase 145 U/L (40-150); Anion Gap 16 mmol/L (10-20); BUN (Urea Nitrogen) 35 mg/dL (9.8-20.1); Bilirubin, Total 0.3 mg/dL (0.2-1.2); Calc. Creatinine Clearance 44 mL/min (70-130); Carbon Dioxide 24 mmol/L (23-31); Chloride 103 mmol/L (98-107); Estimated GFR-MDRD 31; Globulin 2.4 g/dL (2.4-3.5); Glucose 193 mg/dL (83-110); Potassium 3.8 mmol/L (3.5-5.1); Protein, Total 4.9 g/dL (6.0-8.3); Sodium 139 mmol/L (136-145)
[2018-06-17] MEDS: Ciprofloxacin 500 MG TAB PO SCH ×2 (05:38→23:09)
[2018-06-17 05:40] LABS: Anisocytosis SLIGHT = 6-15 cells (100X) (0-5/hpf); Band 22 % (5-11); Hemoglobin 8.5 g/dL (12.0-16.0); Lymphocytes 22 % (21-51); MDiff Complete? YES; Mean Corpuscular Hemoglobin 27.6 pg (27.0-31.0); Mean Corpuscular Volume 76.6 fL (78.0-98.0); Mean Platelet Volume 5.8 fL (7.4-10.4); Microcytosis SLIGHT = 6-15 cells (100X) (0-5/hpf); Monocytes 20 % (0-10); Neutrophil 36 % (42-75); Ovalocytes SLIGHT = 2-5 cells (100X) (0-1/hpf); PLT Morphology Comment Appears Adequate; Platelet Count 153 thou/uL (130-400); RBC Distribution Width 15.1 % (11.5-14.5); Red Blood Cell (RBC) Count 3.07 mill/uL (4.20-5.40); Toxic Granulation SLIGHT; White Blood Cell (WBC) Count 4.1 thou/uL (4.8-10.8)
[2018-06-17] MEDS: Levemir Flexpen 100 UNITS/ML PEN SC SCH ×2 (08:16→20:54)
[2018-06-17] MEDS: Venlafaxine XR 37.5 MG CAP PO SCH ×2 (08:21→20:54)
[2018-06-17] MEDS: Furosemide 40 MG TAB PO SCH ×3 (08:22→13:50)
[2018-06-17] MEDS: Carvedilol 25 MG TAB PO SCH ×2 (08:23→16:31)
[2018-06-17] MEDS: Lisinopril 20 MG TAB PO SCH ×2 (08:23→20:55)
[2018-06-17] MEDS: Aspirin 325 MG TAB PO SCH (08:23)
[2018-06-17] MEDS: Saccharomyces boulardii 250 MG CAP PO SCH (08:24)
[2018-06-17] MEDS: Vancomycin HCl 1 GM in Sodium Chloride 0.9% 250 ML 250 ML IVPB SCH (08:24)
[2018-06-17] MEDS: Loratadine 10 MG TAB PO PRN (08:48)
[2018-06-17] MEDS ORDERED: FLUID RESTRICTION IVPB PRN (10:24)
[2018-06-17] MEDS: HumaLOG 300 UNITS/3 ML VIAL SC PRN ×3 (12:22→20:52)
[2018-06-17] MEDS: NIFEdipine XL 30 MG TAB PO SCH (13:47)
[2018-06-17] MEDS: Acetaminophen 325 MG TAB PO PRN (13:58)
[2018-06-17] MEDS: Famotidine 20 MG TAB PO PRN (20:54)
[2018-06-17] MEDS: Atorvastatin Calcium 40 MG TAB PO SCH (20:54)
[2018-06-17] MEDS: Spironolactone 25 MG TAB PO SCH (20:55)
[2018-06-17] MEDS: ALPRAZolam 0.5 MG TAB PO PRN (20:55)
[2018-06-18 05:32] LABS: #Basophils 0.2 thou/uL (0.0-0.2); #Lymphocytes 1.2 thou/uL (1.20-3.40); #Monocytes 0.9 thou/uL (0.11-0.59); #Neutrophils 5.8 thou/uL (1.40-6.50); %Basophils 2.9 % (0.0-1.0); %Eosinophils 0.2 % (0.0-10.0); %Lymphocytes 14.8 % (21.0-51.0); %Monocytes 11.4 % (0.0-10.0); %Neutrophils 70.8 % (42.0-75.0); Hemoglobin 9.5 g/dL (12.0-16.0); Mean Corpuscular HGB CONC 36.7 g/dL (32.0-36.0); Mean Corpuscular Hemoglobin 27.8 pg (27.0-31.0); Mean Corpuscular Volume 75.7 fL (78.0-98.0); Mean Platelet Volume 5.5 fL (7.4-10.4); Platelet Count 179 thou/uL (130-400); RBC Distribution Width 14.9 % (11.5-14.5); Red Blood Cell (RBC) Count 3.43 mill/uL (4.20-5.40); White Blood Cell (WBC) Count 8.2 thou/uL (4.8-10.8)
[2018-06-18 05:40] LABS: ALT (SGPT) 25 U/L (8-55); AST (SGOT) 14 U/L (5-34); Albumin 2.9 g/dL (3.4-4.8); Alkaline Phosphatase 162 U/L (40-150); Anion Gap 16 mmol/L (10-20); BUN (Urea Nitrogen) 32 mg/dL (9.8-20.1); Bilirubin, Total 0.5 mg/dL (0.2-1.2); Calc. Creatinine Clearance 44 mL/min (70-130); Calcium 8.6 mg/dL (7.8-10.44); Carbon Dioxide 26 mmol/L (23-31); Chloride 104 mmol/L (98-107); Estimated GFR-MDRD 32; Globulin 2.8 g/dL (2.4-3.5); Glucose 119 mg/dL (83-110); Potassium 3.7 mmol/L (3.5-5.1); Protein, Total 5.7 g/dL (6.0-8.3); Sodium 142 mmol/L (136-145)
[2018-06-18] MEDS: Loratadine 10 MG TAB PO PRN (07:33)
[2018-06-18] MEDS: diphenhydrAMINE 25 MG CAP PO PRN (07:33)
[2018-06-18] MEDS: Furosemide 40 MG TAB PO SCH ×2 (07:33→13:41)
[2018-06-18] MEDS: Famotidine 20 MG TAB PO PRN ×2 (07:33→21:18)
[2018-06-18] MEDS: ALPRAZolam 0.5 MG TAB PO PRN (07:33)
[2018-06-18] MEDS: Aspirin 325 MG TAB PO SCH (08:10)
[2018-06-18] MEDS: Lisinopril 20 MG TAB PO SCH ×2 (08:11→21:18)
[2018-06-18] MEDS: Saccharomyces boulardii 250 MG CAP PO SCH (08:11)
[2018-06-18] MEDS: Carvedilol 25 MG TAB PO SCH ×2 (08:11→16:36)
[2018-06-18] MEDS: Vancomycin HCl 1 GM in Sodium Chloride 0.9% 250 ML 250 ML IVPB SCH (08:12)
[2018-06-18] MEDS: Venlafaxine XR 37.5 MG CAP PO SCH ×2 (08:12→21:18)
[2018-06-18] MEDS: Levemir Flexpen 100 UNITS/ML PEN SC SCH ×2 (08:17→21:16)
[2018-06-18] MEDS: NIFEdipine XL 30 MG TAB PO SCH (13:41)
[2018-06-18] MEDS: hydrOXYzine 25 MG TAB PO PRN ×2 (14:20→21:18)
[2018-06-18] MEDS: HumaLOG 300 UNITS/3 ML VIAL SC PRN (21:16)
[2018-06-18] MEDS: Spironolactone 25 MG TAB PO SCH (21:17)
[2018-06-18] MEDS: Atorvastatin Calcium 40 MG TAB PO SCH (21:18)
[2018-06-19] MEDS: hydrOXYzine 25 MG TAB PO PRN ×2 (03:38→10:12)
[2018-06-19 07:10] VITALS: BMI 33.7
[2018-06-19 07:50] LABS: Vancomycin, Trough 22.8 ug/mL
[2018-06-19] MEDS: Saccharomyces boulardii 250 MG CAP PO SCH (10:04)
[2018-06-19] MEDS: Vancomycin HCl 1 GM in Sodium Chloride 0.9% 250 ML 250 ML IVPB SCH (10:04)
[2018-06-19] MEDS: Venlafaxine XR 37.5 MG CAP PO SCH (10:05)
[2018-06-19] MEDS: Furosemide 40 MG TAB PO SCH ×2 (10:05→14:18)
[2018-06-19] MEDS: Lisinopril 20 MG TAB PO SCH (10:05)
[2018-06-19] MEDS: Carvedilol 25 MG TAB PO SCH ×2 (10:05→17:01)
[2018-06-19] MEDS: Aspirin 325 MG TAB PO SCH (10:06)
[2018-06-19] MEDS ORDERED: Vancomycin HCl 750 MG in Sodium Chloride 0.9% 250 ML 250 ML IVPB SCH (14:00)
[2018-06-19] MEDS: NIFEdipine XL 30 MG TAB PO SCH (14:12)
[2018-06-19] MEDS: HumaLOG 300 UNITS/3 ML VIAL SC PRN (17:50)
[2018-06-19 18:35] VITALS: BP 156/73; TEMP 97.8
--- NOTE | 2018-06-20 06:53 | DIS ---
PRIMARY CARE PHYSICIAN: Dr. Elise Edward ATTENDING PHYSICIAN: Dr. Hyatt FINAL DIAGNOSES: 1. Generalized rash, possible secondary to vasculitic skin reaction. 2. Congestive heart failure, combined systolic and diastolic. 3. Acute osteomyelitis, left second toe. 4. Respiratory distress secondary to #2, oxygen dependent. 5. Severe anemia requiring blood transfusion. 6. Recent neutropenia. 7. Acute renal insufficiency. 8. Elevated alkaline phosphatase. 9. Hypertension. 10. Deconditioning. BRIEF HISTORY AND COURSE IN THE [facility]: Ms. Patrick is a 72-year-old female who was initially admitted to [facility] on 05/21/2018 due to acute respiratory failure with hypoxia secondary to acute exacerbation of congestive heart failure, combined systolic and diastolic dysfunction, acute renal failure, left second toe osteomyelitis and possible vegetation of the aortic valve, could not be confirmed by FRANCES due to respiratory status. She was transferred to [facility] [place] care for prolonged IV antibiotics for treatment of osteomyelitis with physical and occupational therapy secondary to complicated and protracted hospital stay. On admission, she appeared fluid overloaded with respiratory distress. Josiah Marie was called twice. She was placed on BiPAP and transitioned to nonrebreathing oxygen. Her hemoglobin dropped to 7.1, requiring 2 units of blood transfusion on 06/12/2018. During that time her white count dropped to 1.1 and this was accompanied by a drop on her renal function, also noted was elevated alkaline phosphatase. She had an abdominal CT showing mild fatty liver. Dr. Reyes was consulted regarding neutropenia and was advised to discontinue Rocephin. Consultation with Dr. Maruqez advised to start Cipro along with IV vancomycin. However, 2 days later, the patient developed acute erythematous pruritic eruption on the abdomen and back and progressively spread to her upper extremities. Cipro as the possible offending agent was discontinued 2 days prior. Over the past 48 hours the rash had spread diffusely to both lower extremities. Consideration at this time are vasculitic reaction from recent blood transfusion versus drug reaction. Due to her multiple comorbid conditions and new onset of progressive rash of unknown etiology, the patient agreed for transfer to higher level of care for further evaluation and treatment. PROCEDURES: 1. Chest x-ray on 06/13/2018 showed congestive changes. Increased haziness of her lung bases. 2. Abdominal/pelvis CT scan showed moderate bilateral pleural effusion causing compressive lower lobe atelectases. Positive for mild hepatomegaly. 3. Diffuse fatty infiltration. 4. Recent labs; hemoglobin of 9.5, WBC of 8.2, platelet count of 179. Comprehensive metabolic panel: Sodium of 140, potassium 3.7, BUN of 32, creatinine of 1.6, glucose of 119, alkaline phosphatase of 162. 5. Human immunodeficiency virus test nonreactive. [place] screen negative. DISCHARGE MEDICATIONS: 1. Tylenol 650 mg every 4 hours p.r.n. for headache and fever. 2. DuoNeb q.4h. p.r.n. for shortness of breath. 3. Xanax 0.25 mg p.r.n. for anxiety. 4. Aspirin 325 mg daily. 5. Lipitor 80 mg at bedtime. 6. Dulcolax 10 mg daily p.r.n. for constipation. 7. Coreg 25 mg b.i.d. 8. Clonidine 0.2 mg every 4 hours p.r.n. for systolic BP more than 180. 9. Famotidine 20 mg b.i.d. p.r.n. 10. Lasix 40 mg b.i.d. 11. Hydroxyzine 25 mg every 6 hours p.r.n. for itching. 12. Humalog sliding scale. 13. Imdur 60 mg daily. 14. Lisinopril 20 mg b.i.d. 15. Imodium 2 mg p.r.n. for diarrhea or constipation. 16. Loratadine 10 mg daily. 17. Vancomycin 1 gram daily. 18. Effexor 75 mg daily. 19. Aldactone 50 mg at bedtime. 20. Protonix 40 mg daily. MTDD
== END 2018-06-19 21:00 | disposition short-term general hospital (02) | DRG 637 ==
LOC: BURMED 16:54
PROVIDERS: ADMIT Family Medicine; ATTEND Family Medicine
PROC: 30233N1 Transfusion of Nonautologous Red Blood Cells into Peripheral Vein, Percutaneous Approach (ICD-10-PCS; principal; 2018-06-12)
DX: E11.69 Type 2 diabetes mellitus with other specified complication (principal); I50.43 Acute on chronic combined systolic (congestive) and diastolic (congestive) heart failure; M86.172 Other acute osteomyelitis, left ankle and foot; D61.818 Other pancytopenia; N17.9 Acute kidney failure, unspecified; I25.10 Atherosclerotic heart disease of native coronary artery without angina pectoris; I25.2 Old myocardial infarction; Z85.43 Personal history of malignant neoplasm of ovary; Z85.038 Personal history of other malignant neoplasm of large intestine; Z87.891 Personal history of nicotine dependence; L03.032 Cellulitis of left toe; D64.9 Anemia, unspecified; I11.0 Hypertensive heart disease with heart failure; F41.9 Anxiety disorder, unspecified; L95.9 Vasculitis limited to the skin, unspecified; R06.03 Acute respiratory distress; T36.8X5A Adverse effect of other systemic antibiotics, initial encounter; E88.09 Other disorders of plasma-protein metabolism, not elsewhere classified
CPT/HCPCS: 36415; 36416; 36430; 71045; 74176; 80048; 80053; 80202; 81001; 82728; 82977; 83540; 83550; 84134; 85007; 85025; 85027; 85060; 85610; 85652; 85730; 86140; 86308; 86850; 86900; 86901; 86922; 87086; 87389; 90471; 90670; A4216; G0009; G8978-GP-CL; G8979-GP-CI; G8987-GO-CM; G8988-GO-CJ; J0696; J1815; J1940; J3370; J7050; J7512; J7620; P9016

== ENCOUNTER 2018-07-18 17:00 | Emergency (ER) | payer MEDICARE ==
[2018-07-18 17:48] LABS: ALT (SGPT) 12 U/L (8-55); AST (SGOT) 12 U/L (5-34); Albumin 3.7 g/dL (3.4-4.8); Alkaline Phosphatase 68 U/L (40-150); Anion Gap 19 mmol/L (10-20); BUN (Urea Nitrogen) 23 mg/dL (9.8-20.1); Bilirubin, Total 0.3 mg/dL (0.2-1.2); Calc. Creatinine Clearance 0 mL/min (70-130); Calcium 9.3 mg/dL (7.8-10.44); Carbon Dioxide 19 mmol/L (23-31); Chloride 97 mmol/L (98-107); Estimated GFR-MDRD 27; Globulin 4.3 g/dL (2.4-3.5); Glucose 336 mg/dL (83-110); Potassium 5.1 mmol/L (3.5-5.1); Sodium 130 mmol/L (136-145)
== END 2018-07-18 18:08 | disposition home or self-care (01) ==
LOC: BURERS 17:00
DX: I12.9 Hypertensive chronic kidney disease with stage 1 through stage 4 chronic kidney disease, or unspecified chronic kidney disease (principal); N18.9 Chronic kidney disease, unspecified; I25.10 Atherosclerotic heart disease of native coronary artery without angina pectoris; E11.9 Type 2 diabetes mellitus without complications; E78.5 Hyperlipidemia, unspecified; Z79.4 Long term (current) use of insulin; F41.9 Anxiety disorder, unspecified; F32.9 Major depressive disorder, single episode, unspecified; Z87.891 Personal history of nicotine dependence
CPT/HCPCS: 80053; 93005

== ENCOUNTER 2019-04-06 08:38 | Emergency (ER) | payer MEDICARE ==
--- NOTE | 2019-04-06 09:11 | CT ---
CT BRAIN NONCONTRAST: DATE: 04/06/2019 HISTORY: 73-year-old female with acute right facial droop: This acute stroke alert protocol report was called to the ER physician Dr. Multani at 9:08 a.m. on April 06, 2019 FINDINGS: There is no evidence of acute intra-axial or extra-axial hemorrhage. There is no midline shift or any other mass effect. There is no extra-axial fluid collection. There is no evidence of obstructive hydrocephalus. Calvarium is intact. There is diffuse brain parenchymal volume loss. There are low att enuation areas in the white matter. These are nonspecific, but in a patient of this age, they are probably chronic ischemic white matter changes due to microvascular atherosclerosis. IMPRESSION: 1) No acute intracranial findings. 2) involutional changes and chronic ischemic white matter changes.
[2019-04-06 09:29] LABS: Potassium 3.9 mmol/L (3.5-5.1); Sodium 132 mmol/L (136-145)
[2019-04-06 09:30] LABS: Albumin 3.6 g/dL (3.4-4.8); Anion Gap 16 mmol/L (10-20); BUN (Urea Nitrogen) 22 mg/dL (9.8-20.1); Bilirubin, Total 0.3 mg/dL (0.2-1.2); Calc. Creatinine Clearance 0 mL/min (70-130); Calcium 9.3 mg/dL (7.8-10.44); Carbon Dioxide 20 mmol/L (23-31); Chloride 100 mmol/L (98-107); Estimated GFR-MDRD 33; Globulin 3.6 g/dL (2.4-3.5); Glucose 368 mg/dL (83-110); Protein, Total 7.2 g/dL (5.8-8.1)
[2019-04-06 09:31] LABS: ALT (SGPT) 10 U/L (8-55); AST (SGOT) 10 U/L (5-34); Alkaline Phosphatase 75 U/L (40-150)
[2019-04-06 09:38] LABS: Hemoglobin 10.5 g/dL (12.0-16.0); Mean Corpuscular HGB CONC 32.9 g/dL (32.0-36.0); Mean Corpuscular Hemoglobin 28.9 pg (27.0-31.0); Mean Corpuscular Volume 87.9 fL (78.0-98.0); Platelet Count 270 thou/uL (130-400); RBC Distribution Width 13.3 % (11.5-14.5); Red Blood Cell (RBC) Count 3.63 mill/uL (4.20-5.40); White Blood Cell (WBC) Count 6.4 thou/uL (4.8-10.8)
[2019-04-06 09:39] LABS: #Basophils 0.1 thou/uL (0.0-0.2); #Eosinphils 0.2 thou/uL (0.0-0.7); #Monocytes 0.5 thou/uL (0.11-0.59); #Neutrophils 3.5 thou/uL (1.40-6.50); %Eosinophils 2.5 % (0.0-10.0); %Lymphocytes 32.8 % (21.0-51.0); %Monocytes 8.5 % (0.0-10.0); %Neutrophils 55.3 % (42.0-75.0); MDiff Complete? YES; Manual Diff?? NO; Mean Platelet Volume 6.4 fL (7.4-10.4)
[2019-04-06] MEDS ORDERED: Aspirin Chewable 81 MG TAB ONE (10:08)
[2019-04-06] MEDS ORDERED: Nitroglycerin 2% Ointment 1 INCH/1 GM Packet ONE (10:08)
[2019-04-06 12:42] LABS: #Lymphocytes 2.1 thou/uL (1.20-3.40)
== END 2019-04-06 10:18 | disposition short-term general hospital (02) ==
LOC: BURERS 08:38
DX: G81.90 Hemiplegia, unspecified affecting unspecified side (principal); I25.10 Atherosclerotic heart disease of native coronary artery without angina pectoris; E11.9 Type 2 diabetes mellitus without complications; E78.5 Hyperlipidemia, unspecified; I10 Essential (primary) hypertension; F41.9 Anxiety disorder, unspecified; F32.9 Major depressive disorder, single episode, unspecified; Z87.891 Personal history of nicotine dependence; Z79.899 Other long term (current) drug therapy; Z79.82 Long term (current) use of aspirin; Z79.4 Long term (current) use of insulin
CPT/HCPCS: 36416; 70450; 80053; 84484; 85025; 93005; 36415-59

== ENCOUNTER 2019-04-09 18:35 | Inpatient (IN) | payer MEDICARE ==
[2019-04-09] MEDS ORDERED: ALPRAZolam 0.5 MG TAB PO PRN (20:57)
[2019-04-09] MEDS ORDERED: Loratadine 10 MG TAB PO PRN (20:57)
[2019-04-09] MEDS ORDERED: Acetaminophen 325 MG TAB PO PRN (20:57)
[2019-04-09] MEDS ORDERED: Loperamide HCl 2 MG CAP PO PRN (20:57)
[2019-04-09] MEDS ORDERED: LISPRO SC SCH (21:00)
[2019-04-09] MEDS ORDERED: INSULIN LISPRO PROTAMIN SC SCH (21:00)
[2019-04-09] MEDS ORDERED: Atorvastatin Calcium 40 MG TAB PO SCH (21:00)
[2019-04-09] MEDS: Amlodipine 5 MG TAB PO SCH (21:59)
[2019-04-09] MEDS: Venlafaxine XR 37.5 MG CAP PO SCH (21:59)
[2019-04-09] MEDS: Famotidine 20 MG TAB PO SCH (22:00)
[2019-04-09] MEDS ORDERED: HumaLOG 300 UNITS/3 ML VIAL SC PRN ×2 (22:51)
[2019-04-09] MEDS ORDERED: HumuLIN 70/30 (300 UNITS/3 ML VIAL) SC SCH (23:30)
[2019-04-10 05:23] LABS: #Basophils 0.1 thou/uL (0.0-0.2); #Eosinphils 0.2 thou/uL (0.0-0.7); #Lymphocytes 1.4 thou/uL (1.20-3.40); #Monocytes 0.5 thou/uL (0.11-0.59); #Neutrophils 1.9 thou/uL (1.40-6.50); %Basophils 1.8 % (0.0-1.0); %Eosinophils 3.7 % (0.0-10.0); %Lymphocytes 35.2 % (21.0-51.0); %Monocytes 11.7 % (0.0-10.0); %Neutrophils 47.7 % (42.0-75.0); Hemoglobin 10.8 g/dL (12.0-16.0); Mean Corpuscular Hemoglobin 28.3 pg (27.0-31.0); Mean Corpuscular Volume 88.3 fL (78.0-98.0); Mean Platelet Volume 6.6 fL (7.4-10.4); Platelet Count 268 thou/uL (130-400); RBC Distribution Width 13.3 % (11.5-14.5); Red Blood Cell (RBC) Count 3.83 mill/uL (4.20-5.40); White Blood Cell (WBC) Count 4.1 thou/uL (4.8-10.8)
[2019-04-10 05:28] LABS: ALT (SGPT) 7 U/L (8-55); AST (SGOT) 8 U/L (5-34); Albumin 3.3 g/dL (3.4-4.8); Alkaline Phosphatase 64 U/L (40-150); Anion Gap 14 mmol/L (10-20); BUN (Urea Nitrogen) 24 mg/dL (9.8-20.1); Bilirubin, Total 0.3 mg/dL (0.2-1.2); Calc. Creatinine Clearance 41 mL/min (70-130); Calcium 9.4 mg/dL (7.8-10.44); Carbon Dioxide 26 mmol/L (23-31); Chloride 102 mmol/L (98-107); Estimated GFR-MDRD 36; Globulin 3.2 g/dL (2.4-3.5); Glucose 127 mg/dL (83-110); Potassium 3.7 mmol/L (3.5-5.1); Protein, Total 6.5 g/dL (6.0-8.3); Sodium 138 mmol/L (136-145)
[2019-04-10 06:10] VITALS: TEMP 97.8
[2019-04-10 06:12] VITALS: BMI 27.5
[2019-04-10] MEDS ORDERED: GEMFIBROZIL 600 MG PO SCH (07:30)
[2019-04-10] MEDS ORDERED: Carvedilol 25 MG TAB PO SCH (08:00)
[2019-04-10] MEDS ORDERED: metFORMIN 500 MG TAB PO SCH (08:00)
[2019-04-10] MEDS ORDERED: Glimepiride 2 MG TAB PO SCH (08:00)
[2019-04-10] MEDS ORDERED: Aspirin 325 MG TAB PO SCH (08:00)
[2019-04-10] MEDS: Amlodipine 5 MG TAB PO SCH (08:50)
[2019-04-10] MEDS: Venlafaxine XR 37.5 MG CAP PO SCH (08:51)
[2019-04-10] MEDS: Famotidine 20 MG TAB PO SCH (08:51)
[2019-04-10 08:57] VITALS: BP 136/63
[2019-04-10] MEDS ORDERED: Furosemide 20 MG TAB PO SCH (09:00)
[2019-04-10] MEDS ORDERED: Clopidogrel Bisulfate 75 MG TAB PO SCH (09:00)
[2019-04-10] MEDS ORDERED: INSULIN LISPRO PROTAMIN SC SCH (09:00)
[2019-04-10] MEDS ORDERED: HumuLIN 70/30 (300 UNITS/3 ML VIAL) SC SCH (09:00)
[2019-04-10] MEDS ORDERED: LISPRO SC SCH (09:00)
--- NOTE | 2019-04-10 11:48 | CT ---
CT HEAD WITHOUT IV CONTRAST COMPARISON: 04/07/2019 HISTORY: Mental status change. TECHNIQUE: Axial CT imaging at 5 mm intervals from vertex through skull base without contrast FINDINGS: There is decreased attenuation in the periventricular white matter which is nonspecific but likely re flective of chronic small vessel ischemic changes. There is mild cerebral volume loss. The ventricular system is normal in size, shape, and position for the degree of sulcal atrophy. There is no evidence of an acute infarction, hemorrhage, mass effect, or midline shift. Visualized paranasal sinuses are clear. Osseous structures appear intact. CT head is stable compared to prior exam. IMPRESSION: 1. No acute intracranial abnormality demonstrated. 2. Chronic small vessel ischemic changes and cerebral volume loss.
--- NOTE | 2019-04-10 11:55 | CT ---
EXAM: CT cervical spine PROVIDED CLINICAL HISTORY: Injury after a fall. Mental status change. TECHNIQUE: Contiguous axial CT images are obtained through the cervical spine from the skull base to the T2-3 le angelita. Sagittal and coronal reformatted images are provided. COMPARISON: None FINDINGS: Mild scattered degenerative changes are seen in the cervical spine with disc osteophyte complexes see n at multiple levels. Prominent degenerative changes are seen at the articulation of the odontoid with the anterior arch of C1. The vertebral body heights are within normal limits. No fracture or subluxation is seen involving the cervical spine. No prevertebral soft tissue swelling apparent. Visualized lung apices appear clear. Visualized thyroid gland demonstrates a grossly normal nonenhanced CT appearance. Vascular calcifications are seen in the carotid arteries. IMPRESSION: Degenerative changes in the cervical spine, but no fracture or subluxation is seen..
[2019-04-10] MEDS ORDERED: Gemfibrozil 600 MG TAB PO SCH (16:30)
== END 2019-04-10 11:30 | disposition short-term general hospital (02) | DRG 65 ==
LOC: BURMED 18:35
PROVIDERS: ADMIT Family Medicine; ATTEND Family Medicine
DX: I63.9 Cerebral infarction, unspecified (principal); N18.4 Chronic kidney disease, stage 4 (severe); E87.1 Hypo-osmolality and hyponatremia; E11.40 Type 2 diabetes mellitus with diabetic neuropathy, unspecified; I25.10 Atherosclerotic heart disease of native coronary artery without angina pectoris; I12.9 Hypertensive chronic kidney disease with stage 1 through stage 4 chronic kidney disease, or unspecified chronic kidney disease; R29.810 Facial weakness; R47.01 Aphasia; I16.0 Hypertensive urgency; R47.1 Dysarthria and anarthria; E11.22 Type 2 diabetes mellitus with diabetic chronic kidney disease; E78.5 Hyperlipidemia, unspecified; D64.9 Anemia, unspecified; Z85.038 Personal history of other malignant neoplasm of large intestine; Z85.43 Personal history of malignant neoplasm of ovary; Z90.710 Acquired absence of both cervix and uterus; Z90.49 Acquired absence of other specified parts of digestive tract; Z98.61 Coronary angioplasty status; Z87.891 Personal history of nicotine dependence; Z88.1 Allergy status to other antibiotic agents; Z88.5 Allergy status to narcotic agent; Z91.040 Latex allergy status; Z79.82 Long term (current) use of aspirin; Z79.4 Long term (current) use of insulin
CPT/HCPCS: 36415; 36416; 70470; 72127; 80053; 85025; J1815

== ENCOUNTER 2019-04-10 11:27 | Emergency (ER) | payer MEDICARE ==
[2019-04-10 11:32] LABS: #Basophils 0.1 thou/uL (0.0-0.2); #Eosinphils 0.1 thou/uL (0.0-0.7); #Lymphocytes 1.6 thou/uL (1.20-3.40); #Monocytes 0.6 thou/uL (0.11-0.59); #Neutrophils 3.5 thou/uL (1.40-6.50); %Basophils 1.3 % (0.0-1.0); %Lymphocytes 27.1 % (21.0-51.0); %Neutrophils 59.6 % (42.0-75.0); Hemoglobin 11.4 g/dL (12.0-16.0); Mean Corpuscular HGB CONC 32.8 g/dL (32.0-36.0); Mean Corpuscular Volume 88.3 fL (78.0-98.0); Mean Platelet Volume 6.9 fL (7.4-10.4); Platelet Count 313 thou/uL (130-400); RBC Distribution Width 13.6 % (11.5-14.5); Red Blood Cell (RBC) Count 3.93 mill/uL (4.20-5.40); White Blood Cell (WBC) Count 5.8 thou/uL (4.8-10.8)
[2019-04-10 11:41] LABS: Prothrombin Time 13.5 SEC (12.0-14.7)
[2019-04-10 11:48] LABS: ALT (SGPT) 8 U/L (8-55); AST (SGOT) 11 U/L (5-34); Albumin 3.4 g/dL (3.4-4.8); Alkaline Phosphatase 65 U/L (40-150); Anion Gap 18 mmol/L (10-20); BUN (Urea Nitrogen) 26 mg/dL (9.8-20.1); Bilirubin, Total 0.3 mg/dL (0.2-1.2); CK (CPK) 41 U/L (29-168); Calc. Creatinine Clearance 0 mL/min (70-130); Calcium 9.5 mg/dL (7.8-10.44); Carbon Dioxide 23 mmol/L (23-31); Chloride 100 mmol/L (98-107); Estimated GFR-MDRD 26; Globulin 3.5 g/dL (2.4-3.5); Glucose 134 mg/dL (83-110); Potassium 4.4 mmol/L (3.5-5.1); Protein, Total 6.9 g/dL (6.0-8.3); Sodium 137 mmol/L (136-145)
--- NOTE | 2019-04-10 18:25 | RAD ---
PORTABLE CHEST: 04/10/19 An AP portable film at 1203 is compared with an 06/23/18 study. The heart is mildly to moderately enlar ged. There is no clear congestive change today. The lungs are currently clear. There are no large eff usions. IMPRESSION: No acute thoracic findings. Cardiomegaly. POS: HOME
--- NOTE | 2019-04-10 18:27 | RAD ---
PELVIS: 04/10/19 A portable film at 1205 shows no gross fracture. The hips both appear intact. The symphysis shows no widening or off-set. The SI joints are symmetrical. The minimal irregularity along each inferior pubi c ramus and ischial region is felt to be developmental. The hip joints are symmetrical in terms of wi dth. There may have been old trauma to the top of the left greater trochanter. IMPRESSION: No acute traumatic findings. POS: HOME
--- NOTE | 2019-04-11 12:13 | CT ---
"PRELIMINARY REPORT" EXAM: CT cervical spine PROVIDED CLINICAL HISTORY: Injury after a fall. Mental status change. TECHNIQUE: Contiguous axial CT images are obtained through the cervical spine from the skull base to the T2-3 le angelita. Sagittal and coronal reformatted images are provided. COMPARISON: None FINDINGS: Mild scattered degenerative changes are seen in the cervical spine with disc osteophyte complexes see n at multiple levels. Prominent degenerative changes are seen at the articulation of the odontoid with the anterior arch of C1. The vertebral body heights are within normal limits. No fracture or subluxation is seen involving the cervical spine. No prevertebral soft tissue swelling apparent. Visualized lung apices appear clear. Visualized thyroid gland demonstrates a grossly normal nonenhanced CT appearance. Vascular calcifications are seen in the carotid arteries. IMPRESSION: Degenerative changes in the cervical spine, but no fracture or subluxation is seen.. Transcribed Date/Time: 04/11/2019 12:12 PM
--- NOTE | 2019-04-11 12:13 | CT ---
"PRELIMINARY REPORT" CT HEAD WITHOUT IV CONTRAST COMPARISON: 04/07/2019 HISTORY: Mental status change. TECHNIQUE: Axial CT imaging at 5 mm intervals from vertex through skull base without contrast FINDINGS: There is decreased attenuation in the periventricular white matter which is nonspecific but likely re flective of chronic small vessel ischemic changes. There is mild cerebral volume loss. The ventricular system is normal in size, shape, and position for the degree of sulcal atrophy. There is no evidence of an acute infarction, hemorrhage, mass effect, or midline shift. Visualized paranasal sinuses are clear. Osseous structures appear intact. CT head is stable compared to prior exam. IMPRESSION: 1. No acute intracranial abnormality demonstrated. 2. Chronic small vessel ischemic changes and cerebral volume loss. Transcribed Date/Time: 04/11/2019 12:13 PM
== END 2019-04-10 12:45 | disposition short-term general hospital (02) ==
LOC: BURERS 11:27
DX: S61.411A Laceration without foreign body of right hand, initial encounter (principal); R41.82 Altered mental status, unspecified; I25.10 Atherosclerotic heart disease of native coronary artery without angina pectoris; E11.9 Type 2 diabetes mellitus without complications; E78.5 Hyperlipidemia, unspecified; I10 Essential (primary) hypertension; Z87.891 Personal history of nicotine dependence; F41.9 Anxiety disorder, unspecified; F32.9 Major depressive disorder, single episode, unspecified; Z79.84 Long term (current) use of oral hypoglycemic drugs; Z79.4 Long term (current) use of insulin; Z79.82 Long term (current) use of aspirin; X58.XXXA Exposure to other specified factors, initial encounter
CPT/HCPCS: 36416; 70450; 71045; 72125; 72170; 82274; 82550; 84484; 85610; 85730; 93005; 94760; 36415-59

== ENCOUNTER 2019-04-13 14:59 | Inpatient (IN) | payer MEDICARE ==
[2019-04-13 16:17] VITALS: BMI 27.8
[2019-04-13] MEDS ORDERED: Senokot S 8.6-50 MG TAB PO PRN (17:21)
[2019-04-13] MEDS ORDERED: Dextrose 50% Abboject 50 ML SYRINGE SLOW IVP PRN (17:28)
[2019-04-13] MEDS ORDERED: Dextrose 5% in Water 1,000 ML IV PRN (17:28)
[2019-04-13] MEDS: Amlodipine 5 MG TAB PO SCH (20:45)
[2019-04-13] MEDS ORDERED: Atorvastatin Calcium 40 MG TAB PO SCH (20:45)
[2019-04-13] MEDS: Atorvastatin Calcium 40 MG TAB PO SCH (20:45)
[2019-04-13] MEDS: Carvedilol 3.125 MG TAB PO SCH (20:46)
[2019-04-13] MEDS: Magnesium Oxide 400 MG TAB PO SCH (20:46)
[2019-04-13] MEDS: HumaLOG 300 UNITS/3 ML VIAL SC PRN (22:18)
--- NOTE | 2019-04-14 00:36 | HP ---
REASON FOR ADMISSION: Status post CVA with debilitation and weakness complicated by metabolic and polypharmacy encephalopathy. HISTORY OF PRESENT ILLNESS: The patient is a 73-year-old white female who was initially admitted to [facility] with acute onset dysarthria and right-sided facial droop, which she awoke from. She was not a candidate for anticoagulation and was admitted to [facility] and she improved and felt was appropriate for transfer to [facility] bed status which occurred on 04/09/2019, within 24 hours she was found on the floor by nursing staff with altered mental status with an NIH score that moved from a 2 to a 20. She was readmitted to [facility], underwent imaging studies as well as a neurological consult, which showed no findings changed from the previous admission and was thought she had encephalopathy likely multifactorial involving polypharmacy. She was continued on dual antiplatelet therapy with aspirin and Plavix. She returned to her baseline mental status but continued to be weak, debilitated, did have some dysarthria and right-sided facial droop and was felt to be appropriate to be transferred back to [facility] for physical and occupational therapy. PAST MEDICAL HISTORY: Significant for: 1. Diabetes mellitus. 2. Renal insufficiency. 3. Coronary artery disease. 4. Diabetic neuropathy. 5. Hypertension. 6. History of osteomyelitis in the left second toe. 7. History of heart failure with diastolic dysfunction. PAST SURGICAL HISTORY: Significant for ovarian cancer and colon cancer status post hysterectomy, partial colectomy, and cardiac stents. FAMILY HISTORY: Positive for family members with diabetes. ALLERGIES: INCLUDING CIPRO, CODEINE, LASIX, AND NATURAL RUBBER. ADMISSION MEDICATIONS: 1. Amlodipine 5 mg p.o. b.i.d. 2. Aspirin 325 mg daily with mg daily. 3. Coreg 25 mg p.o. b.i.d. 4. Plavix 75 mg daily. 5. Pepcid 20 mg p.o. b.i.d. 6. Lasix 20 mg p.o. b.i.d. 7. Glimepiride 4 mg p.o. b.i.d. 8. Metformin 1000 mg p.o. b.i.d. 9. Effexor 75 mg p.o. b.i.d. REVIEW OF SYSTEMS: At this time, the patient reports appetite good with normal bowel movements. No dysuria, hematuria, no change in urinary frequency. The patient denies any chest pain or shortness of breath. No nausea, vomiting, or diarrhea. No significant back pain. No new rashes were noted. The patient reports continued dysarthria since her recent CVA and noted right facial droop. The patient denies depression. She does report generalized weakness. No obvious visual changes reported by patient. PHYSICAL EXAMINATION: GENERAL: White female, tired appearing, in no obvious distress. VITAL SIGNS: Significant for O2 sat of 93% on room air, temperature 98.2, pulse of 70, respiratory rate was 20, blood pressure was 93/64. HEENT: Atraumatic, normocephalic. Extraocular movements are intact. Pupils are equal, round, and reactive to light and accommodation. Oropharynx, mucous membranes were moist. No exudate, discharge, nor lesions. NECK: Supple. No masses were palpated. No bruits auscultated. CHEST: Clear to auscultation bilaterally. HEART: Regular rate and rhythm. ABDOMEN: Soft, bowel sounds positive, nontender, and nondistended. No masses were palpated. EXTREMITIES: Showed no significant cyanosis, clubbing, or edema. No ulcers, no lesions were noted. ASSESSMENT AND PLAN: 1. Status post cerebrovascular accident with right sided facial droop and dysarthria. Apparently, the patient was evaluated and was appropriate physical and occupational, and possibly speech therapy. We will order all of these and see how the patient improves. 2. History of encephalopathy, multifactorial. The patient seems to be doing well today. We will continue her on all her routine medications. She will continue on the Plavix and aspirin for cerebrovascular accident prevention and we will follow her blood pressure closely. 3. Diabetes mellitus. The patient was on Amaryl. We will continue her routine medications of Amaryl and metformin, watch her renal function, and follow her Accu-Cheks. 4. Diastolic congestive heart failure. We will continue her on Lasix 20 mg p.o. b.i.d. 5. Hypertension. The patient is on Coreg and amlodipine. Her blood pressure was low today on admission. We will continue to follow. 6. Hyperlipidemia. We will continue the patient on her atorvastatin 80 mg daily. 7. Disposition. The patient has been using a walker but otherwise has been ambulating fairly well at home. The plan is to discharge her to home when she is back to her baseline neurological status. This was discussed with the patient and family member in the room and all questions were answered. Job ID: [id number]
[2019-04-14 05:52] LABS: ALT (SGPT) 12 U/L (8-55); AST (SGOT) 11 U/L (5-34); Albumin 3.4 g/dL (3.4-4.8); Alkaline Phosphatase 80 U/L (40-150); Anion Gap 14 mmol/L (10-20); BUN (Urea Nitrogen) 19 mg/dL (9.8-20.1); Bilirubin, Total 0.4 mg/dL (0.2-1.2); Calc. Creatinine Clearance 42 mL/min (70-130); Calcium 9.6 mg/dL (7.8-10.44); Carbon Dioxide 24 mmol/L (23-31); Chloride 102 mmol/L (98-107); Estimated GFR-MDRD 38; Globulin 3.5 g/dL (2.4-3.5); Glucose 229 mg/dL (83-110); Potassium 4.2 mmol/L (3.5-5.1); Protein, Total 6.9 g/dL (6.0-8.3); Sodium 136 mmol/L (136-145)
[2019-04-14 06:55] LABS: #Basophils 0.1 thou/uL (0.0-0.2); #Eosinphils 0.1 thou/uL (0.0-0.7); #Lymphocytes 2.1 thou/uL (1.20-3.40); #Monocytes 0.7 thou/uL (0.11-0.59); #Neutrophils 5.9 thou/uL (1.40-6.50); %Basophils 0.6 % (0.0-1.0); %Eosinophils 1.7 % (0.0-10.0); %Lymphocytes 23.7 % (21.0-51.0); %Monocytes 8.2 % (0.0-10.0); %Neutrophils 65.8 % (42.0-75.0); Hemoglobin 10.9 g/dL (12.0-16.0); Mean Corpuscular HGB CONC 35.1 g/dL (32.0-36.0); Mean Corpuscular Hemoglobin 31.3 pg (27.0-31.0); Mean Corpuscular Volume 89.3 fL (78.0-98.0); Mean Platelet Volume 7.1 fL (7.4-10.4); Platelet Count 330 thou/uL (130-400); RBC Distribution Width 13.3 % (11.5-14.5); Red Blood Cell (RBC) Count 3.48 mill/uL (4.20-5.40); White Blood Cell (WBC) Count 8.9 thou/uL (4.8-10.8)
[2019-04-14] MEDS: HumaLOG 300 UNITS/3 ML VIAL SC PRN ×3 (09:40→17:33)
[2019-04-14] MEDS: Enoxaparin Sodium 30 MG/0.3 ML SYRINGE SC SCH (09:43)
[2019-04-14] MEDS: Glimepiride 2 MG TAB PO SCH ×2 (09:45→17:34)
[2019-04-14] MEDS: Aspirin 325 mg Enteric Coated Tablet PO SCH (09:46)
[2019-04-14] MEDS: metFORMIN 500 MG TAB PO SCH ×2 (09:46→17:34)
[2019-04-14] MEDS: Carvedilol 3.125 MG TAB PO SCH ×2 (09:47→20:35)
[2019-04-14] MEDS: Magnesium Oxide 400 MG TAB PO SCH ×2 (09:48→20:35)
[2019-04-14] MEDS: Amlodipine 5 MG TAB PO SCH ×2 (09:48→20:35)
[2019-04-14] MEDS: Gemfibrozil 600 MG TAB PO SCH ×2 (09:48→17:34)
[2019-04-14] MEDS: Clopidogrel Bisulfate 75 MG TAB PO SCH (09:52)
[2019-04-14] MEDS: HumuLIN 70/30 (300 UNITS/3 ML VIAL) SC SCH ×2 (09:56→17:33)
[2019-04-14] MEDS: Atorvastatin Calcium 40 MG TAB PO SCH (20:35)
--- NOTE | 2019-04-14 23:57 | CT ---
CT brain. HISTORY: TIAs. Noncontrast enhanced CT of the brain obtained. The brain is unremarkable. No evidence of acute intracranial masses, hemorrhages or strokes seen. IMPRESSION: Normal CT brain.
[2019-04-15 00:16] LABS: PTT 31.2 SEC (22.9-36.1); Prothrombin Time 13.1 SEC (12.0-14.7)
[2019-04-15 00:24] LABS: ALT (SGPT) 9 U/L (8-55); AST (SGOT) 8 U/L (5-34); Albumin 3.5 g/dL (3.4-4.8); Alkaline Phosphatase 80 U/L (40-150); Anion Gap 16 mmol/L (10-20); BUN (Urea Nitrogen) 23 mg/dL (9.8-20.1); Bilirubin, Total 0.3 mg/dL (0.2-1.2); Calc. Creatinine Clearance 35 mL/min (70-130); Calcium 9.7 mg/dL (7.8-10.44); Carbon Dioxide 25 mmol/L (23-31); Chloride 102 mmol/L (98-107); Estimated GFR-MDRD 31; Globulin 3.5 g/dL (2.4-3.5); Glucose 120 mg/dL (83-110); Potassium 4.5 mmol/L (3.5-5.1); Sodium 138 mmol/L (136-145)
[2019-04-15 01:43] LABS: #Eosinphils 0.2 thou/uL (0.0-0.7); #Lymphocytes 2.7 thou/uL (1.20-3.40); #Monocytes 0.7 thou/uL (0.11-0.59); %Basophils 0.4 % (0.0-1.0); %Eosinophils 1.9 % (0.0-10.0); %Monocytes 8.6 % (0.0-10.0); %Neutrophils 58.2 % (42.0-75.0); Hemoglobin 9.4 g/dL (12.0-16.0); Mean Corpuscular HGB CONC 33.3 g/dL (32.0-36.0); Mean Corpuscular Hemoglobin 29.7 pg (27.0-31.0); Mean Corpuscular Volume 89.2 fL (78.0-98.0); Mean Platelet Volume 7.3 fL (7.4-10.4); Platelet Count 390 thou/uL (130-400); RBC Distribution Width 13.2 % (11.5-14.5); Red Blood Cell (RBC) Count 3.16 mill/uL (4.20-5.40); White Blood Cell (WBC) Count 8.6 thou/uL (4.8-10.8)
[2019-04-15] MEDS: Aspirin 325 mg Enteric Coated Tablet PO SCH (08:38)
[2019-04-15] MEDS: Gemfibrozil 600 MG TAB PO SCH ×2 (08:39→17:43)
[2019-04-15] MEDS: Carvedilol 3.125 MG TAB PO SCH ×2 (08:40→20:52)
[2019-04-15] MEDS: Furosemide 20 MG TAB PO SCH ×2 (08:40→20:51)
[2019-04-15] MEDS: metFORMIN 500 MG TAB PO SCH ×2 (08:41→17:42)
[2019-04-15] MEDS: Glimepiride 2 MG TAB PO SCH ×2 (08:41→17:43)
[2019-04-15] MEDS: Clopidogrel Bisulfate 75 MG TAB PO SCH (08:41)
[2019-04-15] MEDS: Magnesium Oxide 400 MG TAB PO SCH ×2 (08:41→20:52)
[2019-04-15] MEDS: Enoxaparin Sodium 30 MG/0.3 ML SYRINGE SC SCH (08:43)
[2019-04-15] MEDS: HumuLIN 70/30 (300 UNITS/3 ML VIAL) SC SCH ×2 (08:46→17:41)
[2019-04-15] MEDS: HumaLOG 300 UNITS/3 ML VIAL SC PRN (12:56)
[2019-04-15] MEDS: Atorvastatin Calcium 40 MG TAB PO SCH (20:51)
[2019-04-15] MEDS: Amlodipine 10 MG TAB PO SCH (20:52)
[2019-04-16 05:29] LABS: Hemoglobin 10.5 g/dL (12.0-16.0); Platelet Count 351 thou/uL (130-400)
[2019-04-16] MEDS: Enoxaparin Sodium 30 MG/0.3 ML SYRINGE SC SCH (08:50)
[2019-04-16] MEDS: Glimepiride 2 MG TAB PO SCH ×2 (08:51→17:01)
[2019-04-16] MEDS: Aspirin 325 mg Enteric Coated Tablet PO SCH (08:51)
[2019-04-16] MEDS: Clopidogrel Bisulfate 75 MG TAB PO SCH (08:51)
[2019-04-16] MEDS: Furosemide 20 MG TAB PO SCH ×2 (08:51→20:47)
[2019-04-16] MEDS: metFORMIN 500 MG TAB PO SCH ×2 (08:52→17:01)
[2019-04-16] MEDS: Magnesium Oxide 400 MG TAB PO SCH ×2 (08:52→20:47)
[2019-04-16] MEDS: Carvedilol 3.125 MG TAB PO SCH ×2 (08:54→20:47)
[2019-04-16] MEDS: Gemfibrozil 600 MG TAB PO SCH ×2 (08:54→17:01)
[2019-04-16] MEDS: HumuLIN 70/30 (300 UNITS/3 ML VIAL) SC SCH ×2 (08:55→18:39)
[2019-04-16] MEDS: HumaLOG 300 UNITS/3 ML VIAL SC PRN (13:07)
[2019-04-16] MEDS: Atorvastatin Calcium 40 MG TAB PO SCH (20:46)
[2019-04-16] MEDS: Amlodipine 10 MG TAB PO SCH (20:46)
[2019-04-16] MEDS ORDERED: Zolpidem Tartrate 5 MG TAB PO PRN (23:27)
[2019-04-17] MEDS: metFORMIN 500 MG TAB PO SCH ×2 (08:32→17:17)
[2019-04-17] MEDS: Clopidogrel Bisulfate 75 MG TAB PO SCH (08:32)
[2019-04-17] MEDS: Aspirin 325 mg Enteric Coated Tablet PO SCH (08:32)
[2019-04-17] MEDS: Glimepiride 2 MG TAB PO SCH ×2 (08:33→17:17)
[2019-04-17] MEDS: Gemfibrozil 600 MG TAB PO SCH ×2 (08:33→17:17)
[2019-04-17] MEDS: Carvedilol 3.125 MG TAB PO SCH ×2 (08:34→20:51)
[2019-04-17] MEDS: Furosemide 20 MG TAB PO SCH ×2 (08:35→15:17)
[2019-04-17] MEDS: Enoxaparin Sodium 30 MG/0.3 ML SYRINGE SC SCH (08:35)
[2019-04-17] MEDS: Magnesium Oxide 400 MG TAB PO SCH ×2 (08:35→20:51)
[2019-04-17] MEDS: HumuLIN 70/30 (300 UNITS/3 ML VIAL) SC SCH ×2 (08:36→18:11)
[2019-04-17] MEDS: HumaLOG 300 UNITS/3 ML VIAL SC PRN (13:36)
[2019-04-17] MEDS: Atorvastatin Calcium 40 MG TAB PO SCH (20:51)
[2019-04-17] MEDS: Amlodipine 10 MG TAB PO SCH (20:51)
[2019-04-18 05:26] LABS: Platelet Count 393 thou/uL (130-400)
[2019-04-18] MEDS: HumaLOG 300 UNITS/3 ML VIAL SC PRN ×3 (08:52→16:53)
[2019-04-18] MEDS: HumuLIN 70/30 (300 UNITS/3 ML VIAL) SC SCH ×2 (08:53→16:52)
[2019-04-18] MEDS: Enoxaparin Sodium 30 MG/0.3 ML SYRINGE SC SCH (08:54)
[2019-04-18] MEDS: Gemfibrozil 600 MG TAB PO SCH ×2 (08:56→16:49)
[2019-04-18] MEDS: metFORMIN 500 MG TAB PO SCH ×2 (08:57→16:49)
[2019-04-18] MEDS: Magnesium Oxide 400 MG TAB PO SCH ×2 (08:57→21:44)
[2019-04-18] MEDS: Carvedilol 3.125 MG TAB PO SCH ×2 (08:57→21:45)
[2019-04-18] MEDS: Clopidogrel Bisulfate 75 MG TAB PO SCH (08:58)
[2019-04-18] MEDS: Furosemide 20 MG TAB PO SCH ×2 (08:58→13:04)
[2019-04-18] MEDS: Glimepiride 2 MG TAB PO SCH ×2 (08:58→16:50)
[2019-04-18] MEDS: Aspirin 325 mg Enteric Coated Tablet PO SCH (08:59)
[2019-04-18] MEDS: Acetaminophen 325 MG TAB PO PRN (11:33)
[2019-04-18] MEDS: Atorvastatin Calcium 40 MG TAB PO SCH (21:44)
[2019-04-18] MEDS: Amlodipine 10 MG TAB PO SCH (21:44)
[2019-04-19] MEDS: Gemfibrozil 600 MG TAB PO SCH ×2 (08:25→17:25)
[2019-04-19] MEDS: Glimepiride 2 MG TAB PO SCH ×2 (08:25→17:25)
[2019-04-19] MEDS: metFORMIN 500 MG TAB PO SCH ×2 (08:30→17:55)
[2019-04-19] MEDS: HumuLIN 70/30 (300 UNITS/3 ML VIAL) SC SCH ×2 (08:45→18:07)
[2019-04-19] MEDS: Magnesium Oxide 400 MG TAB PO SCH ×2 (09:48→22:02)
[2019-04-19] MEDS: Aspirin 325 mg Enteric Coated Tablet PO SCH (09:49)
[2019-04-19] MEDS: Clopidogrel Bisulfate 75 MG TAB PO SCH (09:49)
[2019-04-19] MEDS: Furosemide 20 MG TAB PO SCH ×2 (09:49→14:06)
[2019-04-19] MEDS: Carvedilol 3.125 MG TAB PO SCH ×2 (09:50→22:02)
[2019-04-19] MEDS: Atorvastatin Calcium 40 MG TAB PO SCH (22:01)
[2019-04-19] MEDS: Amlodipine 10 MG TAB PO SCH (22:02)
[2019-04-19] MEDS ORDERED: Sodium Chloride 0.9% 10 ML ONE (22:26)
[2019-04-20] MEDS: Acetaminophen 325 MG TAB PO PRN (02:33)
[2019-04-20] MEDS: Glimepiride 2 MG TAB PO SCH ×2 (08:25→16:56)
[2019-04-20] MEDS: metFORMIN 500 MG TAB PO SCH ×2 (08:25→16:57)
[2019-04-20] MEDS: Gemfibrozil 600 MG TAB PO SCH ×2 (08:26→16:56)
[2019-04-20] MEDS: HumuLIN 70/30 (300 UNITS/3 ML VIAL) SC SCH ×2 (08:27→16:57)
[2019-04-20] MEDS: Aspirin 325 mg Enteric Coated Tablet PO SCH (09:51)
[2019-04-20] MEDS: Carvedilol 3.125 MG TAB PO SCH ×2 (09:51→22:51)
[2019-04-20] MEDS: Clopidogrel Bisulfate 75 MG TAB PO SCH (09:52)
[2019-04-20] MEDS: Magnesium Oxide 400 MG TAB PO SCH ×2 (09:52→22:50)
[2019-04-20] MEDS: Furosemide 20 MG TAB PO SCH ×2 (09:52→14:12)
[2019-04-20] MEDS: HumaLOG 300 UNITS/3 ML VIAL SC PRN (14:11)
[2019-04-20] MEDS ORDERED: Sodium Chloride 0.9% 10 ML ONE (22:44)
[2019-04-20] MEDS: Amlodipine 10 MG TAB PO SCH (22:50)
[2019-04-20] MEDS: Atorvastatin Calcium 40 MG TAB PO SCH (22:50)
[2019-04-21 05:57] VITALS: BP 113/59; TEMP 97.9
[2019-04-21] MEDS: Gemfibrozil 600 MG TAB PO SCH (07:53)
[2019-04-21] MEDS: Glimepiride 2 MG TAB PO SCH (07:53)
[2019-04-21] MEDS: Furosemide 20 MG TAB PO SCH ×2 (08:41→14:03)
[2019-04-21] MEDS: Carvedilol 3.125 MG TAB PO SCH (08:41)
[2019-04-21] MEDS: metFORMIN 500 MG TAB PO SCH (08:41)
[2019-04-21] MEDS: Clopidogrel Bisulfate 75 MG TAB PO SCH (08:41)
[2019-04-21] MEDS: Magnesium Oxide 400 MG TAB PO SCH (08:41)
[2019-04-21] MEDS: Aspirin 325 mg Enteric Coated Tablet PO SCH (08:42)
[2019-04-21] MEDS: HumuLIN 70/30 (300 UNITS/3 ML VIAL) SC SCH (08:42)
== END 2019-04-21 15:35 | disposition home or self-care (01) | DRG 57 ==
LOC: BURMED 15:15
PROVIDERS: ADMIT Family Medicine; ATTEND Family Medicine
DX: I69.322 Dysarthria following cerebral infarction (principal); I50.30 Unspecified diastolic (congestive) heart failure; I69.392 Facial weakness following cerebral infarction; I11.0 Hypertensive heart disease with heart failure; E78.5 Hyperlipidemia, unspecified; I25.10 Atherosclerotic heart disease of native coronary artery without angina pectoris; E11.40 Type 2 diabetes mellitus with diabetic neuropathy, unspecified; Z85.43 Personal history of malignant neoplasm of ovary; Z85.038 Personal history of other malignant neoplasm of large intestine; Z90.710 Acquired absence of both cervix and uterus; Z90.49 Acquired absence of other specified parts of digestive tract; Z98.61 Coronary angioplasty status; Z88.1 Allergy status to other antibiotic agents; Z88.5 Allergy status to narcotic agent; Z88.8 Allergy status to other drugs, medicaments and biological substances; Z79.02 Long term (current) use of antithrombotics/antiplatelets; Z79.84 Long term (current) use of oral hypoglycemic drugs; Z79.82 Long term (current) use of aspirin
CPT/HCPCS: 36415; 36416; 70450; 80053; 82565; 85014; 85018; 85025; 85049; 85610; 85730; J1650; J1815

== ENCOUNTER 2019-04-15 00:13 | Emergency (ER) | payer MEDICARE | END 2019-04-15 01:35 | disposition critical access hospital (66) | LOC: BURERS 00:13 | DX: R47.1 Dysarthria and anarthria (principal); R20.2 Paresthesia of skin; I25.10 Atherosclerotic heart disease of native coronary artery without angina pectoris; E11.9 Type 2 diabetes mellitus without complications; E78.5 Hyperlipidemia, unspecified; I10 Essential (primary) hypertension; Z86.73 Personal history of transient ischemic attack (TIA), and cerebral infarction without residual deficits; F41.9 Anxiety disorder, unspecified; F32.9 Major depressive disorder, single episode, unspecified; Z87.891 Personal history of nicotine dependence; Z79.899 Other long term (current) drug therapy; Z79.82 Long term (current) use of aspirin | CPT/HCPCS: 36416; 99284 ==

== ENCOUNTER 2019-05-20 13:32 | Emergency (ER) | payer MEDICARE ==
[2019-05-20 14:38] LABS: #Basophils 0.1 thou/uL (0.0-0.2); #Eosinphils 0.2 thou/uL (0.0-0.7); #Lymphocytes 1.1 thou/uL (1.20-3.40); #Monocytes 0.4 thou/uL (0.11-0.59); #Neutrophils 3.8 thou/uL (1.40-6.50); %Basophils 1.4 % (0.0-1.0); %Eosinophils 4.1 % (0.0-10.0); %Lymphocytes 19.3 % (21.0-51.0); %Monocytes 7.7 % (0.0-10.0); %Neutrophils 67.5 % (42.0-75.0); Hemoglobin 11.3 g/dL (12.0-16.0); Mean Corpuscular HGB CONC 31.8 g/dL (32.0-36.0); Mean Corpuscular Hemoglobin 28.2 pg (27.0-31.0); Mean Corpuscular Volume 88.9 fL (78.0-98.0); Mean Platelet Volume 6.8 fL (7.4-10.4); Platelet Count 258 thou/uL (130-400); RBC Distribution Width 13.4 % (11.5-14.5); Red Blood Cell (RBC) Count 4.02 mill/uL (4.20-5.40); White Blood Cell (WBC) Count 5.6 thou/uL (4.8-10.8)
[2019-05-20 14:53] LABS: ALT (SGPT) 10 U/L (8-55); AST (SGOT) 10 U/L (5-34); Albumin 3.8 g/dL (3.4-4.8); Alkaline Phosphatase 86 U/L (40-150); Anion Gap 20 mmol/L (10-20); BUN (Urea Nitrogen) 20 mg/dL (9.8-20.1); Bilirubin, Total 0.5 mg/dL (0.2-1.2); Calc. Creatinine Clearance 0 mL/min (70-130); Calcium 9.7 mg/dL (7.8-10.44); Carbon Dioxide 20 mmol/L (23-31); Chloride 97 mmol/L (98-107); Estimated GFR-MDRD 26; Globulin 3.6 g/dL (2.4-3.5); Glucose 489 mg/dL (83-110); Potassium 4.6 mmol/L (3.5-5.1); Protein, Total 7.4 g/dL (6.0-8.3); Sodium 132 mmol/L (136-145)
[2019-05-20] MEDS ORDERED: Insulin Regular 300 UNITS/3 ML VIAL ONE ×2 (15:06→15:13)
[2019-05-20 15:13] LABS: CKMB 1.2 ng/mL (0-6.6)
[2019-05-20 15:39] LABS: Clarity Cloudy (Clear); Leukocyte Negative (Negative); Nitrite Negative (Negative)
[2019-05-20 15:40] LABS: Bilirubin Small (Negative); Blood, Urine Moderate (Negative); Glucose, Urine (Dipstick) >=1000 mg/dL (Negative); Protein, Urine (Dipstick) > or equal to 300 mg/dL (Neg-Trace); Urobilinogen 0.2 mg/dL (Less than 2)
[2019-05-20 15:42] LABS: Bacteria/HPF 4+ HPF (None Seen); Broad Cast None Seen LPF (None Seen); Calcium Oxalate Crystals None Seen HPF (None Seen); Cellular Cast None Seen LPF (None Seen); Crystals/HPF None Seen HPF (Negative); Epithelial Cast None Seen LPF (None Seen); Fatty Cast None Seen LPF (None Seen); Hyaline Casts/LPF NONE SEEN LPF (0-3 Hyaline); Other Casts None Seen LPF (None Seen); Other Casts/LPF None Seen LPF (0-3 Hyaline); Oval Fat Bodies/HPF None Seen HPF (None Seen); RBC/HPF 0-3 HPF (0-3); Red Blood Cell Cast None Seen LPF (None Seen); Renal Epithelial None Seen HPF (None Seen); Sperm/HPF None Seen HPF (None Seen); Squamous Epithelial 0-3 HPF (0-3); Transitional Epithelial None Seen HPF (None Seen); Trichomonas/HPF None Seen HPF (None Seen); Triple Phosphate Crystal None Seen HPF (None Seen); Unclassified Crystals None Seen HPF (None Seen); WBC/HPF 21-50 HPF (0-3); Waxy Cast None Seen LPF (None Seen); White Blood Cell Cast None Seen LPF (None Seen); Yeast-All Forms None Seen HPF (None Seen); Yeast-Budding None Seen HPF (None Seen); Yeast-Hyphae None Seen HPF (None Seen)
[2019-05-20 16:51] LABS: Troponin I 0.022 ng/mL (< 0.028)
--- NOTE | 2019-05-20 20:41 | CT ---
CT OF THE BRAIN WITHOUT CONTRAST: 05/20/19 Comparison is made with a 04/14/19 study in this patient with altered mental status. Diffuse atrophy is present. The ventricles are normal in size for age and atrophy. Mild hypodensity o f the deep white matter suggests chronic ischemic change. There were no signs of focal stroke, mass o r edema. The calvarium appears intact. The visible paranasal sinuses are clear. IMPRESSION: No acute intracranial findings. POS: HOME
== END 2019-05-20 17:24 | disposition home or self-care (01) ==
LOC: BURERS 13:32
DX: N39.0 Urinary tract infection, site not specified (principal); E78.5 Hyperlipidemia, unspecified; I10 Essential (primary) hypertension; I25.10 Atherosclerotic heart disease of native coronary artery without angina pectoris; F41.9 Anxiety disorder, unspecified; F32.9 Major depressive disorder, single episode, unspecified; Z87.891 Personal history of nicotine dependence; Z79.899 Other long term (current) drug therapy; Z79.82 Long term (current) use of aspirin
CPT/HCPCS: 70450; 80053; 81003; 82553; 83605; 84484; 85025; 93005; 96361; 96374; J1815